=== PATIENT | female | born 1975 ===

== ENCOUNTER 2017-03-05 21:13 | Observation (INO) | payer MEDICAID ==
[2017-03-05 21:23] VITALS: RESP 16
--- NOTE | 2017-03-05 21:50 | ED PDOC ---
HPI: Abdomen <Shawn Darby A - Last Filed: 03/05/17 23:45> Chief Complaint (Provider): Abdominal Pain History Per: Patient History/Exam Limitations: no limitations Onset/Duration Of Symptoms: Days (x1 ) Current Symptoms Are (Timing): Still Present <Abena Fontanez - Last Filed: 03/05/17 23:53> Time Seen by Provider: 03/05/17 21:31 Chief Complaint (Nursing): Abdominal Pain Additional Complaint(s): Maude Little is a 41 year old female who presents to the emergency department with a complaint of pelvic pain associated with vaginal bleeding and headache since this morning. Denied fever, chills, urinary complaints, or taking medication for symptom relief. Of note, patient is currently 7 weeks with history of normal, vaginal births. G3,P2. Patients bleeding was resolved upon arrival to the ED. PMD: Lasha Watson MD (Abena Fontanez Y) Past Medical History <Shawn Darby A - Last Filed: 03/05/17 23:45> Reviewed: Historical Data, Nursing Documentation, Vital Signs - Medical History PMH: No Chronic Diseases Denies: Diabetes - Surgical History Surgical History: No Surg Hx - Family History Family History: States: Unknown Family Hx <Abena Fontanez Y - Last Filed: 03/05/17 23:53> Vital Signs: Last Vital Signs Temp 98.1 F 03/05/17 21:19 Pulse 62 03/05/17 21:19 Resp 16 03/05/17 21:19 BP 114/54 L 03/05/17 21:19 Pulse Ox 100 03/05/17 21:57 - Home Medications Home Medications: Ambulatory Orders Medication Instructions Recorded Multivit/Folic Acid/I 1 tab PO DAILY 03/05/17 [ Plus] - Allergies Allergies/Adverse Reactions: Allergies Allergy/AdvReac Type Severity Reaction Status Date / Time No Known Allergies Allergy Verified 01/21/16 23:27 Review of Systems ROS Statement: Except As Marked, All Systems Reviewed And Found Negative Constitutional: Negative for: Fever, Chills Genitourinary Female: Positive for: Vaginal Bleeding, Pelvic Pain. Negative for : Dysuria, Hematuria Neurological: Positive for: Headache <Abena Fontanez Y - Last Filed: 03/05/17 23:53> Physical Exam - Reviewed Nursing Documentation Reviewed: Yes Vital Signs Reviewed: Yes - Physical Exam Appears: Positive for: Well, Non-toxic, No Acute Distress Head Exam: Positive for: ATRAUMATIC, NORMAL INSPECTION, NORMOCEPHALIC Skin: Positive for: Normal Color Cardiovascular/Chest: Positive for: Regular Rate, Rhythm Respiratory: Positive for: Normal Breath Sounds. Negative for: Crackles, Rales , Rhonchi, Wheezing Gastrointestinal/Abdominal: Positive for: Normal Exam, Bowel Sounds, Soft, Tenderness (pelvis) Extremity: Positive for: Normal ROM. Negative for: Tenderness, Pedal Edema Neurologic/Psych: Positive for: Alert, top installer II-XII, Oriented <Abena Fontanez Y - Last Filed: 03/05/17 23:53> - Laboratory Results Result Diagrams: 03/05/17 21:53 03/05/17 21:53 <Shawn Darby - Last Filed: 03/05/17 23:45> - Laboratory Results Result Diagrams: 03/05/17 21:53 03/05/17 21:53 - ECG O2 Sat by Pulse Oximetry: 100 (RA) Pulse Ox Interpretation: Normal <Abena Fontanez Y - Last Filed: 03/05/17 23:53> Medical Decision Making <Shawn Darby A - Last Filed: 03/05/17 23:45> <Abena Fontanez Y - Last Filed: 03/05/17 23:53> Medical Decision Making: Initial Impression: Vaginal bleeding; Initial Plan: * Type and screen * Beta-HCG * Labs * Urine C&S * Admit to hospital * Urinalysis * US OB preg & transvag Scribe Attestation: Documented by Seda Hernandez, acting as a scribe for Abena Fontanez MD. Provider Scribe Attestation: All medical record entries made by the Scribe were at my direction and personally dictated by me. I have reviewed the chart and agree that the record accurately reflects my personal performance of the history, physical exam, medical decision making, and the department course for this patient. I have also personally directed, reviewed, and agree with the discharge instructions and disposition. 2328-Ultrasound Report Addendum created by Yahir Martinez MD on 03/05/2017 11:28 PM Eastern Time ([place] & [place]) THIS REPORT CONTAINS FINDINGS THAT MAY BE CRITICAL TO PATIENT CARE. The findings were verbally communicated via telephone conference with Abena Hutchins at 11:28 PM EDT on 03/05/2017. The findings were acknowledged and understood. Initial Report created on 03/05/2017 11:26 PM Eastern Time ([place] & [place]) EXAM: US , Transvaginal CLINICAL HISTORY: 41 years old, female; Pain; complicated by abdominal or pelvic pain; Lower; First trimester; Gestational age or lmp: 12/20/2015; ; Additional info: pain TECHNIQUE: Real-time transvaginal obstetrical ultrasound of the maternal pelvis and a first trimester with image documentation. Transvaginal imaging was used for better evaluation of the fetus and adnexa. COMPARISON: No relevant prior studies available. FINDINGS: Gestation: Gestational sac. No yolk sac. pole. [place]-rump length of 1.6 cm , correlating with gestational age of 8 weeks 0 days. No heartbeat detected. Uterus/cervix: 0.6 x 0.3 x 0.5 cm collection along gestational sac, possibly subchorionic hemorrhage. No cervical dilatation or effacement. Ovaries: RIGHT ovary: Normal. LEFT ovary: 1.1 x 1.3 x 1.1 cm anechoic lesion. No adnexal masses. Free fluid: No significant free fluid. IMPRESSION: 1. Findings compatible with demise. 2. LEFT ovarian cyst. 3. Incidental/non-acute findings are described above 2330 Re-Evaluation: Diagnosis: Demise. Patients cervix is closed, hemoglobin is stable, urine presents no infection, and the patient is RH positive. The patient has been given bleeding precautions and instructed to follow-up with OBGYN in two days. PT has also been made aware of ultrasound report. 2330: Discharge Discussed results and plan with patient who expresses understanding. Counseling was provided regarding the diagnosis and prognosis. All questions answered and there is agreement with the plan to discharge home with instructions. Patient stable for discharge. Return if symptoms persist or worsen. Scribe Attestation: Documented by Brianne Ortiz, acting as a scribe for Abena Fontanez MD. Scribe Attestation: All medical record entries made by the Scribe were at my direction and personally dictated by me. I have reviewed the chart and agree that the record accurately reflects my personal performance of the history, physical exam, medical decision making, and the department course for this patient. I have also personally directed, reviewed, and agree with the discharge instructions and disposition. (Abena Fontanez) Disposition <Shawn Darby - Last Filed: 03/05/17 23:45> - Patient ED Disposition Is Patient to be Admitted: No - Disposition Disposition: Routine/Home Disposition Time: 23:30 <Abena Fontanez - Last Filed: 03/05/17 23:53> - Clinical Impression Clinical Impression: demise - Disposition Condition: IMPROVED
[2017-03-05 22:12] LABS: BASO % 0.5 % (0.0-2.0); EOS # 0.2 K/uL (0.0-0.7); EOS % 2.3 % (0.0-4.0); HEMOGLOBIN 11.6 g/dL (12.0-16.0); LYMPH # 2.5 K/uL (1.0-4.3); LYMPH % 30.5 % (20.0-40.0); MEAN CELL VOLUME 81.6 fl (81.0-99.0); MEAN CORPUSCULAR HEMOGLOBIN 26.4 pg (27.0-31.0); MEAN CORPUSCULAR HGB CONC 32.4 g/dL (33.0-37.0); MEAN PLATELET VOLUME 8.1 fl (7.2-11.7); MONO # 0.4 K/uL (0.0-0.8); MONO % 4.9 % (0.0-10.0); NEUT % 61.8 % (50.0-75.0); RBC 4.39 Mil/uL (3.80-5.20); WHITE BLOOD COUNT 8.1 K/uL (4.8-10.8)
[2017-03-05 22:31] LABS: ALB/GLOB RATIO 1.5 (1.0-2.1); ALBUMIN 4.3 g/dL (3.5-5.0); ALT/SGPT 30 U/L (9-52); AST/SGOT 26 U/L (14-36); BLOOD UREA NITROGEN 9 mg/dl (7-17); CALCIUM 9.4 mg/dL (8.4-10.2); GFR AFRICAN-AMERICAN > 60; GFR NON-AFRICAN AMERICAN > 60
[2017-03-05 22:56] LABS: SQUAMOUS EPITHIAL < 1 /hpf (0-5); URINE BILIRUBIN NEGATIVE (NEGATIVE); URINE BLOOD SMALL (NEGATIVE); URINE CLARITY CLEAR (Clear); URINE COLOR YELLOW (YELLOW); URINE GLUCOSE (UA) NEG (Normal); URINE LEUKOCYTE ESTERASE NEG Leu/uL (Negative); URINE NITRATE NEGATIVE (NEGATIVE); URINE PROTEIN NEGATIVE (NEGATIVE); URINE UROBILINOGEN 0.2-1.0 mg/dL (0.2-1.0)
--- NOTE | 2017-03-05 23:26 | US ---
EXAM: US , Transvaginal CLINICAL HISTORY: 41 years old, female; Pain; complicated by abdominal or pelvic pain; Lower; First trimester; Gestational age or lmp: 12/20/2015; ; Additional info: pain TECHNIQUE: Real-time transvaginal obstetrical ultrasound of the maternal pelvis and a first trimester with image documentation. Transvaginal imaging was used for better evaluation of the fetus and adnexa. COMPARISON: No relevant prior studies available. FINDINGS: Gestation: Gestational sac. No yolk sac. pole. [place]-rump length of 1.6 cm, correlating with gestational age of 8 weeks 0 days. No heartbeat detected. Uterus/cervix: 0.6 x 0.3 x 0.5 cm collection along gestational sac, possibly subchorionic hemorrhage. No cervical dilatation or effacement. Ovaries: RIGHT ovary: Normal. LEFT ovary: 1.1 x 1.3 x 1.1 cm anechoic lesion. No adnexal masses. Free fluid: No significant free fluid. IMPRESSION: 1. Findings compatible with demise. 2. LEFT ovarian cyst. 3. Incidental/non-acute findings are described above.
[2017-03-05 23:58] VITALS: BP 121/66; PULSE 76; TEMP 98.6; O2SAT 98
== END 2017-03-05 23:30 | disposition home or self-care (01) ==
LOC: H.ER 21:13 → H.EROBSV 21:47
PROVIDERS: ADMIT Emergency Medicine; ATTEND Emergency Medicine
DX: O02.1 Missed abortion (principal); Z3A.01 Less than 8 weeks gestation of pregnancy

== ENCOUNTER 2017-03-07 16:27 | Emergency (ER) | payer MEDICAID ==
[2017-03-07 16:43] VITALS: RESP 16; TEMP 98.8; O2SAT 98
[2017-03-07] MEDS ORDERED: Lactated Ringer's 1,000 ML IV STA ×2 (16:58→20:47)
--- NOTE | 2017-03-07 17:39 | ED PDOC ---
HPI: Female Pain Time Seen by Provider: 03/07/17 16:54 Chief Complaint (Nursing): Female Genitourinary Chief Complaint (Provider): vaginal bleeding History Per: Patient History/Exam Limitations: no limitations Onset/Duration Of Symptoms: Days (4), Persistent, Worse Since (9am) Quality Of Discomfort: Cramping Associated Symptoms: denies: Fever, Chills, Nausea, Vomiting, Diarrhea, Urinary Symptoms Additional Complaint(s): 10wks with recent visits to ER for vaginal bleeding and pelvic pain. Had been told that she is having a miscarriage. Today at 9am bleeding suddenly more heavy with clots, and associated with more severe pain No lightheadedness. No fainting. Used 4 sanitary pads so far. Has not f/u with OB yet. OB Jeremías Santos Past Medical History Reviewed: Historical Data, Nursing Documentation, Vital Signs Vital Signs: Last Vital Signs Temp 98.8 F 03/07/17 16:39 Pulse 75 03/07/17 16:39 Resp 16 03/07/17 16:39 BP 123/57 L 03/07/17 16:39 Pulse Ox 98 03/07/17 16:39 - Medical History PMH: No Chronic Diseases - Surgical History Surgical History: No Surg Hx - Family History Family History: States: Unknown Family Hx - Social History Current smoker - smoking cessation education provided: No - Home Medications Home Medications: Ambulatory Orders Medication Instructions Recorded Multivit/Folic Acid/I 1 tab PO DAILY 03/05/17 [ Plus] Ibuprofen [Motrin Tab] 600 mg PO Q8 PRN #60 tab 03/07/17 - Allergies Allergies/Adverse Reactions: Allergies Allergy/AdvReac Type Severity Reaction Status Date / Time No Known Allergies Allergy Verified 01/21/16 23:27 Review of Systems ROS Statement: Except As Marked, All Systems Reviewed And Found Negative (and as per HPI) Gastrointestinal: Positive for: Abdominal Pain. Negative for: Nausea, Vomiting , Diarrhea Genitourinary Female: Positive for: Vaginal Bleeding, Pelvic Pain Physical Exam - Reviewed Nursing Documentation Reviewed: Yes Vital Signs Reviewed: Yes - Physical Exam Appears: Positive for: Non-toxic, In Acute Distress Head Exam: Positive for: ATRAUMATIC, NORMOCEPHALIC Skin: Positive for: Warm, Dry. Negative for: Pallor Eye Exam: Positive for: EOMI, PERRL ENT: Positive for: Normal ENT Inspection Neck: Positive for: Painless ROM, Supple Cardiovascular/Chest: Positive for: Regular Rate, Rhythm. Negative for: Murmur Respiratory: Negative for: Accessory Muscle Use, Respiratory Distress Gastrointestinal/Abdominal: Positive for: Bowel Sounds, Soft, Tenderness. Negative for: Mass, Distended, Guarding Pelvic Exam: Positive for: Active Bleeding, Blood (heavy with clots cervic open) , Tender Uterus Back: Positive for: Normal Inspection Extremity: Negative for: Pedal Edema, Deformity Neurologic/Psych: Positive for: Alert. Negative for: Motor/Sensory Deficits - Laboratory Results Result Diagrams: 03/07/17 17:44 03/07/17 17:44 - ECG O2 Sat by Pulse Oximetry: 98 - Progress ED Course And Treament: EXAM: US , Transvaginal CLINICAL HISTORY: 41 years old female; Signs and symptoms; Lmp or gestational age (in weeks): Lmp. .; Other: Heavy vag bleed and ; Patient HX: Exam 2 days ago uploaded to [employer]; Additional info: Heavy vaginal bleed R/O missed ab TECHNIQUE: Real-time transvaginal obstetrical ultrasound of the maternal pelvis and a first trimester with image documentation. Transvaginal imaging was used for better evaluation of the endometrial contents and adnexa. COMPARISON: OB ultrasound dated 03/05/2017. FINDINGS: Uterus: Uterus is anteverted. It is mildly enlarged and measures approximately 10.8 x 6.4 x 6 cm. The endometrium is thickened and heterogeneous and measures 21.8 mm. No significant vascularity is seen by color flow ultrasound. Findings most likely represent blood clot. No findings to suggest retained products of conception. Cervix: Unremarkable Gestation: The previously noted intrauterine gestational sac and embryo are no longer seen consistent with interval spontaneous . Free fluid: There is no free fluid in the cul-de-sac. Ovaries/adnexa: The ovaries were not visualized, obscured by bowel gas. IMPRESSION: Interval spontaneous with evacuation of the gestational sac and embryo. Thickened endometrium without evidence of increased vascularity. Findings consistent with blood clot. Ovaries not visualized. Thank you for allowing us to participate in the care of your patient. Dictated and Authenticated by: Jaiden Muñoz MD 03/07/2017 8:11 PM Eastern Time ([place] & [place]) Disposition - Clinical Impression Clinical Impression: Miscarriage Counseled Patient/Family Regarding: Studies Performed, Diagnosis, Need For Followup, Rx Given - Disposition [facility] - 03[facility]09[facility]17 Disposition: Routine/Home Disposition Time: 21:00 Condition: STABLE Prescriptions: Ibuprofen [Motrin Tab] 600 mg PO Q8 PRN #60 tab PRN Reason: Pain, Moderate (4-7) Instructions: Spontaneous Miscarriage (ED) Forms: [facility] ED School/Work Excuse Print Language: TAMAZIGHT
[2017-03-07 17:49] LABS: BASO % 0.3 % (0.0-2.0); EOS # 0.2 K/uL (0.0-0.7); EOS % 2.4 % (0.0-4.0); HEMOGLOBIN 12.1 g/dL (12.0-16.0); LYMPH # 2.1 K/uL (1.0-4.3); MEAN CELL VOLUME 82.2 fl (81.0-99.0); MEAN CORPUSCULAR HEMOGLOBIN 26.9 pg (27.0-31.0); MEAN CORPUSCULAR HGB CONC 32.7 g/dL (33.0-37.0); MEAN PLATELET VOLUME 8.2 fl (7.2-11.7); MONO # 0.7 K/uL (0.0-0.8); MONO % 6.7 % (0.0-10.0); NEUT # 6.8 K/uL (1.8-7.0); NEUT % 69.6 % (50.0-75.0); RBC 4.52 Mil/uL (3.80-5.20); RED CELL DISTRIBUTION WIDTH 19.1 % (11.5-14.5); WHITE BLOOD COUNT 9.8 K/uL (4.8-10.8)
[2017-03-07 17:59] LABS: ALB/GLOB RATIO 1.6 (1.0-2.1); ALBUMIN 4.5 g/dL (3.5-5.0); ALT/SGPT 33 U/L (9-52); AST/SGOT 15 U/L (14-36); BLOOD UREA NITROGEN 12 mg/dl (7-17); CALCIUM 9.3 mg/dL (8.4-10.2); GFR AFRICAN-AMERICAN > 60; GFR NON-AFRICAN AMERICAN > 60
[2017-03-07 18:14] LABS: INR 1.1 (0.9-1.2); PARTIAL THROMBOPLASTIN TIME 30.4 Seconds (25.6-37.1); PROTHROMBIN TIME 12.4 Seconds (9.8-13.1)
[2017-03-07 22:02] VITALS: BP 121/6; PULSE 87
--- NOTE | 2017-03-08 10:35 | US ---
PROCEDURE: HISTORY: heavy vaginal bleed r/o missed ab COMPARISON: 03/05/2017 TECHNIQUE: FINDINGS: Diffuse thickening of the endometrium measuring 22 millimeters without vascularity suggestive of hemorrhagic thrombus. No definite evidence of products of conception. No evidence of intrauterine gestational sac compatible with spontaneous . The ovaries are not visualized. There is no free fluid the pelvis. IMPRESSION: As above.
== END 2017-03-07 22:09 | disposition home or self-care (01) ==
LOC: H.ER 16:27
DX: O03.9 Complete or unspecified spontaneous abortion without complication (principal)

== ENCOUNTER 2017-10-05 14:36 | Inpatient (IN) | payer MEDICAID, OTHER ==
[2017-10-05 14:45] VITALS: BMI 34.9
--- NOTE | 2017-10-05 15:18 | ED PDOC ---
HPI: Abdomen Chief Complaint (Provider): Abdominal pain History Per: Patient History/Exam Limitations: no limitations Onset/Duration Of Symptoms: Days (7), Intermittent Episodes Current Symptoms Are (Timing): Still Present Pain Scale Rating Of: 9 Location Of Pain/Discomfort: Diffuse Quality Of Discomfort: Cramping Associated Symptoms: Fever, Nausea, Diarrhea. denies: Vomiting Exacerbating Factors: None Alleviating Factors: None <Bere Persaud - Last Filed: 10/05/17 19:00> <Shawn Darby - Last Filed: 10/06/17 13:25> Time Seen by Provider: 10/05/17 14:48 Chief Complaint (Nursing): Fever Additional Complaint(s): 42 yo ,f, no significant PMHx presents to ED c/o diffuse generalized abdominal pain started 7 days ago, cramping, 9/10 intensity, not radiated, associated with non-bloddy greenish large diarrhea 7-8 episodes/day for the last 3 days and since yesterday flu like symptoms: occipital headache, nausea, myalgia, fever 101.2, sore throat, dry cough. She denies vomiting, dysuria, hematuria, chest pain, palpitation, dizziness. Pt took motrin this morning w/o relief of symptoms. Pt had 5 drinks on thursday, denies drugs. LMP: 10/03/17 . (Bere Persaud) Supervising Attending Note - Supervising Attending Note The Documented history was done by the: Physician Online Marketing Coordinator, Attending Physician The documented physical exam was done by the: Physician Online Marketing Coordinator, Attending Physician The documented procedures were done by the: Physician Online Marketing Coordinator, Attending Physician - Attestation: I have personally seen and examined this patient.: Yes I have fully participated in the care of the patient.: Yes I have reviewed all pertinent clinical information: Yes <Shawn Darby - Last Filed: 10/06/17 13:25> Past Medical History - Medical History PMH: Denies: Diabetes - Family History Family History: States: Unknown Family Hx <Bere Persaud - Last Filed: 10/05/17 19:00> Reviewed: Historical Data, Nursing Documentation, Vital Signs - Medical History PMH: No Chronic Diseases - Surgical History Surgical History: No Surg Hx <Shawn Darby - Last Filed: 10/06/17 13:25> Vital Signs: Last Vital Signs Temp 98.5 F 10/06/17 12:45 Pulse 80 10/06/17 12:45 Resp 16 10/06/17 12:45 BP 106/60 10/06/17 12:45 Pulse Ox 100 10/06/17 12:45 - Home Medications Home Medications: Ambulatory Orders Medication Instructions Recorded Ibuprofen [Motrin Tab] 400 mg PO PRN PRN 10/06/17 - Allergies Allergies/Adverse Reactions: Allergies Allergy/AdvReac Type Severity Reaction Status Date / Time No Known Allergies Allergy Verified 01/21/16 23:27 Review of Systems Constitutional: Positive for: Fever Respiratory: Positive for: Cough Gastrointestinal: Positive for: Nausea, Abdominal Pain, Diarrhea. Negative for : Vomiting Genitourinary Female: Negative for: Dysuria, Hematuria Neurological: Negative for: Weakness <Bere Persaud - Last Filed: 10/05/17 19:00> ROS Statement: Except As Marked, All Systems Reviewed And Found Negative <Shanw Darby A - Last Filed: 10/06/17 13:25> Physical Exam - Physical Exam Appears: Positive for: In Acute Distress (mild distress from pain ) Head Exam: Positive for: ATRAUMATIC, NORMOCEPHALIC Skin: Positive for: Normal Color Eye Exam: Positive for: Normal appearance ENT: Positive for: Normal ENT Inspection Neck: Positive for: Normal Cardiovascular/Chest: Positive for: Regular Rate, Rhythm. Negative for: Edema, Murmur Respiratory: Positive for: Normal Breath Sounds. Negative for: Crackles, Rales , Rhonchi Gastrointestinal/Abdominal: Positive for: Bowel Sounds (normal ), Soft, Tenderness (epigastric TD and LLQ). Negative for: Distended, Guarding, Rebound Back: Positive for: Normal Inspection. Negative for: L CVA Tenderness, R CVA Tenderness <Bere Persaud - Last Filed: 10/05/17 19:00> - Reviewed Nursing Documentation Reviewed: Yes Vital Signs Reviewed: Yes - Physical Exam Appears: Positive for: Uncomfortable Neurologic/Psych: Positive for: Alert, Oriented <Shawn Darby A - Last Filed: 10/06/17 13:25> - Laboratory Results Result Diagrams: 10/05/17 16:01 10/05/17 16:01 - ECG O2 Sat by Pulse Oximetry: 98 <Bere Persaud - Last Filed: 10/05/17 19:00> - Laboratory Results Result Diagrams: 10/06/17 05:55 10/06/17 05:55 <Shawn Darby - Last Filed: 10/06/17 13:25> Medical Decision Makin:15 pm Patient evaluated for abdominal pain x 7 days, diarrheas the last 3 days and flu symptoms started yesterday Initial impression Abdominal pain Influenza URI Deferential -Acute viral gastroenteritis -Acute pancreatitis -Acute Diverticulitis Plan: Labs CBC, CMP, UA, Lipase, Influenza test, Urine preg Imaging CT Abd w IV contrast Meds: IV fluids, Zofran, Pepcid, Morphine 4mg, Tylenol 650 mg 18:11 pm Patient evaluated, reports abdominal pain is getting better with morphine, but still present 10/24. CBC: WBC normal but neutrohilia 88.6, Bands 10, toxic granulation. UA hematuria secondary to menses Pending CT Abd results. 18:55 CT Abd: showed pancolitis. Trace cholelithiasis. (Bere Persaud) Disposition - Disposition Disposition Time: 19:00 <Bere Persaud - Last Filed: 10/05/17 19:00> - Patient ED Disposition Is Patient to be Admitted: Transfer of Care Counseled Patient/Family Regarding: Studies Performed, Diagnosis - Disposition Disposition Time: 17:00 Patient Signed Over To: Garret Carpio <Shawn Darby - Last Filed: 10/06/17 13:25> - Clinical Impression Clinical Impression: Pancolitis - Disposition Condition: STABLE
[2017-10-05] MEDS ORDERED: Morphine 4 MG/ML VIAL IVP ONE (15:25)
[2017-10-05] MEDS ORDERED: Lactated Ringer's 1,000 ML IV SCH (15:30)
[2017-10-05] MEDS ORDERED: Lactated Ringer's 1,000 ML IV ONE (15:45)
[2017-10-05 16:17] LABS: BASO % 0.1 % (0.0-2.0); LYMPH # 0.8 K/uL (1.0-4.3); LYMPH % 7.3 % (20.0-40.0); MEAN CELL VOLUME 77.2 fl (81.0-99.0); MEAN CORPUSCULAR HGB CONC 32.3 g/dL (33.0-37.0); MEAN PLATELET VOLUME 8.3 fl (7.2-11.7); MONO # 0.4 K/uL (0.0-0.8); NEUT # 9.1 K/uL (1.8-7.0); NEUT % 88.6 % (50.0-75.0); PLATELET COUNT 231 K/uL (130-400); RBC 4.42 Mil/uL (3.80-5.20); RED CELL DISTRIBUTION WIDTH 16.3 % (11.5-14.5); WHITE BLOOD COUNT 10.3 K/uL (4.8-10.8)
[2017-10-05 16:27] LABS: ALB/GLOB RATIO 1.2 (1.0-2.1); ALBUMIN 4.2 g/dL (3.5-5.0); ALT/SGPT 32 U/L (9-52); AST/SGOT 21 U/L (14-36); BLOOD UREA NITROGEN 17 mg/dl (7-17); GFR AFRICAN-AMERICAN > 60; GFR NON-AFRICAN AMERICAN > 60; LIPASE 37 U/L (23-300)
[2017-10-05] MEDS ORDERED: Morphine 4 MG/ML VIAL ONE ×2 (16:31→21:16)
[2017-10-05 16:43] LABS: GRANULAR CAST 2 /lpf (0-1); SQUAMOUS EPITHIAL 1 /hpf (0-5); URINE BACTERIA RARE (<OCC); URINE BILIRUBIN NEGATIVE (NEGATIVE); URINE BLOOD MODERATE (NEGATIVE); URINE CLARITY CLOUDY (Clear); URINE COLOR YELLOW (YELLOW); URINE GLUCOSE (UA) NEG (Normal); URINE LEUKOCYTE ESTERASE NEG Leu/uL (Negative); URINE NITRATE NEGATIVE (NEGATIVE); URINE PROTEIN 100 mg/dL (NEGATIVE); URINE UROBILINOGEN 0.2-1.0 mg/dL (0.2-1.0)
[2017-10-05] MEDS ORDERED: Sodium Chloride 0.9% 50 ML IV ONE (17:01)
[2017-10-05] MEDS ORDERED: Iohexol 300 100 ML IJ ONE (17:01)
[2017-10-05 17:27] LABS: BANDS 10 % (0-2); EOSINOPHIL 1 % (0-7); LYMPHOCYTE 14 % (20-50); MONOCYTE 3 % (0-10); NEUTROPHIL 72 % (42-75); TOTAL CELLS COUNTED 100
[2017-10-05 17:28] LABS: ANISOCYTOSIS SLIGHT; POIKILOCYTOSIS SLIGHT
[2017-10-05 17:29] LABS: HYPOCHROMIC SLIGHT; OVALOCYTES SLIGHT; TARGET CELLS SLIGHT
[2017-10-05 17:30] LABS: POLYCHROMIC SLIGHT; STOMATOCYTES SLIGHT; TEARDROP CELLS SLIGHT
[2017-10-05 17:32] LABS: SPHEROCYTES SLIGHT; TOXIC GRANULATION PRESENT
[2017-10-05 17:33] LABS: PLATELET ESTIMATE NORMAL (NORMAL)
[2017-10-05] MEDS ORDERED: Sodium Chloride 0.9% 1,000 ML IV STA (17:53)
[2017-10-05] MEDS ORDERED: Piperacillin/Tazobact 3.375 GM in Sodium Chloride 0.9% 100 ML IVPB STA (17:54)
[2017-10-05] MEDS ORDERED: Piperacillin/Tazobact 3.375 gm Inj IVPB ONE (18:12)
[2017-10-05 18:36] LABS: VENOUS BLOOD GAS BASE EXCESS -2.3 mmol/L (0.0-2.0); VENOUS BLOOD GAS PCO2 32 mmHg (40-60); VENOUS BLOOD GAS PO2 65 mm/Hg (30-55); VENOUS BLOOD PH 7.43 (7.32-7.43)
--- NOTE | 2017-10-05 18:52 | CT ---
PROCEDURE: CT Abdomen and Pelvis with contrast HISTORY: Epigastric,LLQ abd pain COMPARISON: Abdomen pelvis CT with contrast 09/25/2014. TECHNIQUE: Following the intravenous administration of iodinated contrast material, a CT examination of the abdomen and pelvis performed from the domes of the diaphragms to the symphysis pubis with reformatted datasets provided not only axial but also sagittal and coronal planes. Oral contrast was not administered as per referring physician request. Contrast dose: Omnipaque 300, 95 cc Radiation dose: Total exam DLP = 1034.78 mGy-cm. This CT exam was performed using one or more of the following dose reduction techniques: Automated exposure control, adjustment of the mA and/or kV according to patient size, and/or use of iterative reconstruction technique. FINDINGS: LOWER THORAX: Heart appears prominent. No pleural or pericardial effusion identified. LIVER: Diffuse fatty infiltration of the liver is appreciate without discrete mass. GALLBLADDER AND BILE DUCTS: Trace radiodense cholelithiasis is now identified in the gallbladder lumen versus minimal anterior gallbladder wall calcification. Moderate gallbladder distention is appreciate without pericholecystic fluid collection or mural thickening. PANCREAS: Unremarkable. No gross lesion or ductal dilatation. SPLEEN: Unremarkable. ADRENALS: Right adrenal calcifications are again appreciated. Left adrenal gland remains normal appearing. KIDNEYS AND URETERS: Unremarkable. No hydronephrosis. No solid mass. VASCULATURE: Unremarkable. No aortic aneurysm. BOWEL: Lack of oral contrast administration limits evaluation of the bowel. The stomach is decompressed with limited residual fluid in the lumen. No bowel obstruction or definite mesenteric edema is appreciated including the pericolic spaces. However, fluid is seen throughout the large bowel somewhat more so on the right than left colon segments and mural thickening is suspected throughout the colon in a pattern that likely reflects aguilar colitis. Clinically correlate further. APPENDIX: Normal appendix. PERITONEUM: Unremarkable. No free fluid. No free air. LYMPH NODES: Unremarkable. No enlarged lymph nodes. BLADDER: Urinary bladder is only mildly distended with limited evaluation of the wall resulting. REPRODUCTIVE: Unremarkable. BONES: No acute fracture. OTHER FINDINGS: None. IMPRESSION: Pancolitis were near pancolitis is suspected involving the colon. No abscess, free intraperitoneal gas or ascites. No definite perinephric fluid collection. Retained fluid is seen at the right greater than left hemicolon with suspected mural thickening throughout the large bowel as discussed above. The lack of oral contrast administration limits evaluation of the bowel. Further clinical correlation is advised. Hepatic steatosis. Trace cholelithiasis. Stable right adrenal calcifications. No obvious right adrenal mass.
--- NOTE | 2017-10-05 19:43 | CP.PCM.HP ---
History of Present Illness - History of Present Illness History of Present Illness: This is a 42 year old female with no significant past medical history who presents to the ED with the complaint of fever, chills, generalized abdominal pain, and weakness getting progressively worse. The patient states that the pain is crampy, severe 9/10 intensity, generalized, with watery green nonbloody diarrhea x 3 days. LMP 10/03/2017 In the ED, the patient was found to be febrile with a temp of 101.3, tachycardia of 114, appearing acutely ill. Labwork shows WBC of 10.3, Hg 11.0, plt count of 231, Neutrophilia 88.6%, neutrophil count of 9.1, Band neutrophils of 10%. CT scan abdomen and pelvis reveals diffuse mural thickening and fluid, consistent with pancolitis. Given the patient's vitals she was also diagnosed with sepsis. Patient to be admitted to telemetry for further workup. Present on Admission - Present on Admission Any Indicators Present on Admission: No History of DVT/PE: No History of Uncontrolled Diabetes: No Review of Systems - Review of Systems Review of Systems: A 12 point review of systems was conducted and found to be negative other than what was documented in the HPI. Past Patient History - Infectious Disease Hx of Infectious Diseases: None - Past Social History Smoking Status: Light Smoker < 10 Cigarettes Daily - PSYCHIATRIC Hx Substance Use: No - SURGICAL HISTORY Hx Surgeries: No - ANESTHESIA Hx Anesthesia: No Meds Allergies/Adverse Reactions: Allergies Allergy/AdvReac Type Severity Reaction Status Date / Time No Known Allergies Allergy Verified 01/21/16 23:27 Physical Exam - Additional Findings Additional findings: Physical exam: Constitutional- cooperative, awake, alert Head- NCAT, PERRL Eye- PERRL, EOMI ENT- normal exam, MMM. Neck- normal inspection, supple, no JVD Respiratory- CTAB, no wheezes rales rhonchi Cardiovascular- RRR, +S1, +S2 no MRG GI/Abdominal- normal bowel sounds, soft, + Tender to palpation diffusely, protuberant, nondistended, no mass, no hsm Skin- warm, dry Extremities Exam- normal capillary refill, normal inspection Neurological Exam- alert, awake, oriented Psych- normal mood, normal affect Results - Vital Signs Recent Vital Signs: Last Vital Signs Temp 99.5 F 02/19/18 19:11 Pulse 114 H 10/05/17 14:40 Resp 18 10/05/17 14:40 BP 138/85 10/05/17 14:40 Pulse Ox 98 10/05/17 19:00 - Labs Result Diagrams: 10/05/17 16:01 10/05/17 16:01 Labs: Laboratory Results - last 24 hr 10/05/17 10/05/17 10/05/17 16:01 16:01 16:01 WBC 10.3 RBC 4.42 Hgb 11.0 L Hct 34.2 MCV 77.2 L D MCH 25.0 L MCHC 32.3 L RDW 16.3 H Plt Count 231 MPV 8.3 Neut % (Auto) 88.6 H Lymph % (Auto) 7.3 L [place] % (Auto) 4.0 Eos % (Auto) 0.0 Baso % (Auto) 0.1 Neut # (Auto) 9.1 H Lymph # (Auto) 0.8 L [place] # (Auto) 0.4 Eos # (Auto) 0.0 Baso # (Auto) 0.0 Neutrophils % (Manual) 72 Band Neutrophils % 10 H Lymphocytes % (Manual) 14 L Monocytes % (Manual) 3 Eosinophils % (Manual) 1 Toxic Granulation Present Platelet Estimate Normal Polychromasia Slight Hypochromasia (manual) Slight Poikilocytosis (manual Slight Anisocytosis (manual) Slight Spherocytes Slight Target Cells Slight Tear Drop Cells Slight Ovalocytes Slight Stomatocytes Slight pO2 VBG pH VBG pCO2 VBG HCO3 VBG Total CO2 VBG O2 Sat (Calc) VBG Base Excess VBG Potassium Glucose Lactate FiO2 Sodium 138 Potassium 4.0 Chloride 104 Carbon Dioxide 22 Anion Gap 16 BUN 17 Creatinine 0.9 Est GFR ( Amer) > 60 Est GFR (Non-Af Amer) > 60 Random Glucose 124 H Calcium 9.0 Total Bilirubin 0.6 AST 21 ALT 32 Alkaline Phosphatase 76 Total Protein 7.8 Albumin 4.2 Globulin 3.6 Albumin/Globulin Ratio 1.2 Lipase 37 Venous Blood Potassium Urine Color Urine Clarity Urine pH Ur Specific [place] Urine Protein Urine Glucose (UA) Urine Ketones Urine Blood Urine Nitrate Urine Bilirubin Urine Urobilinogen Ur Leukocyte Esterase Urine RBC (Auto) Urine Microscopic WBC Ur Squamous Epith Cells Urine Bacteria Hyaline Casts Granular Casts (Auto) Alcohol, Quantitative < 10 Influenza Typ A,B (EIA) Negative for flu a/b 10/05/17 10/05/17 16:05 18:20 WBC RBC Hgb Hct MCV MCH MCHC RDW Plt Count MPV Neut % (Auto) Lymph % (Auto) [place] % (Auto) Eos % (Auto) Baso % (Auto) Neut # (Auto) Lymph # (Auto) [place] # (Auto) Eos # (Auto) Baso # (Auto) Neutrophils % (Manual) Band Neutrophils % Lymphocytes % (Manual) Monocytes % (Manual) Eosinophils % (Manual) Toxic Granulation Platelet Estimate Polychromasia Hypochromasia (manual) Poikilocytosis (manual Anisocytosis (manual) Spherocytes Target Cells Tear Drop Cells Ovalocytes Stomatocytes pO2 65 H VBG pH 7.43 VBG pCO2 32 L VBG HCO3 23.0 VBG Total CO2 22.2 VBG O2 Sat (Calc) 95.2 H VBG Base Excess -2.3 L VBG Potassium 3.3 L Glucose 113 H Lactate 0.7 FiO2 21.0 Sodium 135.0 Potassium Chloride 107.0 Carbon Dioxide Anion Gap BUN Creatinine Est GFR ( Amer) Est GFR (Non-Af Amer) Random Glucose Calcium Total Bilirubin AST ALT Alkaline Phosphatase Total Protein Albumin Globulin Albumin/Globulin Ratio Lipase Venous Blood Potassium 3.3 L Urine Color Yellow Urine Clarity Cloudy Urine pH 6.0 Ur Specific [place] 1.028 Urine Protein 100 Urine Glucose (UA) Neg Urine Ketones Negative Urine Blood Moderate Urine Nitrate Negative Urine Bilirubin Negative Urine Urobilinogen 0.2-1.0 Ur Leukocyte Esterase Neg Urine RBC (Auto) 49 H Urine Microscopic WBC 4 Ur Squamous Epith Cells 1 Urine Bacteria Rare Hyaline Casts 3-5 H Granular Casts (Auto) 2 Alcohol, Quantitative Influenza Typ A,B (EIA) Assessment & Plan - Assessment and Plan (Free Text) Plan: ASSESSMENT/PLAN 1) Sepsis due to pancolitis - Admit to telemetry - Consultation with Dr. Sahu, GI - Regular diet - IV fluids - IV abx: Rocephin 1 gram IVPB q 12 hours and Flagyl 500 mg IVPB q 12 hours ( Vanc/Zosyn given in ED) - Morphine PRN for abdominal pain - Zofran PRN N/V - Blood culture, UCX, Stool CX, WBC stool, C. diff toxin A&B - Tylenol PRN for fever - Repeat labs in AM - F/u GI in AM 2) Obesity BMI 34.9 Chronic 3) DVT prophylaxis - Heparin SQ
[2017-10-05] MEDS: Sodium Chloride 0.9% 1,000 ML IV SCH (21:42)
[2017-10-06] MEDS: Sodium Chloride 0.9% 1,000 ML IV SCH ×2 (05:33→10:12)
[2017-10-06] MEDS ORDERED: Morphine 4 MG/ML VIAL ONE ×3 (05:46→14:24)
[2017-10-06 06:00] LABS: HEMOGLOBIN 9.1 g/dL (12.0-16.0); MEAN CORPUSCULAR HEMOGLOBIN 24.3 pg (27.0-31.0); MEAN CORPUSCULAR HGB CONC 31.5 g/dL (33.0-37.0); RBC 3.75 Mil/uL (3.80-5.20); RED CELL DISTRIBUTION WIDTH 16.6 % (11.5-14.5)
[2017-10-06 06:28] LABS: BLOOD UREA NITROGEN 10 mg/dl (7-17); GFR AFRICAN-AMERICAN > 60; GFR NON-AFRICAN AMERICAN > 60
[2017-10-06] MEDS ORDERED: metroNIDAZOLE 500mg/100ml NS 100 ML IVPB ONE (08:06)
[2017-10-06] MEDS: metroNIDAZOLE 500mg/100ml NS 100 ML IVPB SCH ×2 (08:10→22:23)
[2017-10-06] MEDS ORDERED: Potassium Chloride 20 mEq ER Tab PO ONE ×3 (08:57→10:09)
--- NOTE | 2017-10-06 09:06 | CP.PCM.CON ---
History of Present Illness - History of Present Illness History of Present Illness: 42 yo female coming to the ER after 3 days of abdominal pain and diarrhea. Symptoms started 3 days ago and having 7 green watery bowel movements daily. Review of Systems - Constitutional Constitutional: Fever - EENT Eyes: absent: Blurred Vision Ears: absent: Decreased Hearing Nose/Mouth/Throat: absent: Epistaxis - Cardiovascular Cardiovascular: absent: Chest Pain - Respiratory Respiratory: absent: Cough - Gastrointestinal Gastrointestinal: As Per HPI - Genitourinary Genitourinary: absent: Change in Urinary Stream Past Patient History - Infectious Disease Hx of Infectious Diseases: None - Past Social History Smoking Status: Light Smoker < 10 Cigarettes Daily - PSYCHIATRIC Hx Substance Use: No - SURGICAL HISTORY Hx Surgeries: No - ANESTHESIA Hx Anesthesia: No Meds Allergies/Adverse Reactions: Allergies Allergy/AdvReac Type Severity Reaction Status Date / Time No Known Allergies Allergy Verified 01/21/16 23:27 - Medications Medications: Current Medications Acetaminophen (Tylenol 325mg Tab) 650 mg PO Q6 PRN PRN Reason: Fever >100.4 F Last Admin: 10/05/17 21:40 Dose: 650 mg Heparin Sodium (Porcine) (Heparin) 5,000 units SC Q12 [facility] PRN Reason: Protocol Last Admin: 10/05/17 21:41 Dose: 5,000 units Metronidazole (Flagyl 500mg/100ml Ns) 100 mls @ 100 mls/hr IVPB Q12 [facility] PRN Reason: Protocol Last Admin: 10/06/17 08:10 Dose: 100 mls/hr Ceftriaxone Sodium 1 gm/ (Sodium Chloride) 100 mls @ 100 mls/hr IVPB DAILY [facility] PRN Reason: Protocol Sodium Chloride (Sodium Chloride 0.9%) 1,000 mls @ 150 mls/hr IV .Q6H40M [facility] Stop: 10/06/17 19:43 Last Admin: 10/06/17 05:33 Dose: 150 mls/hr Morphine Sulfate (Morphine) 2 mg IVP Q4 PRN PRN Reason: Pain, severe (8-10) Last Admin: 10/06/17 05:50 Dose: 2 mg Ondansetron HCl (Zofran Inj) 4 mg IVP Q6 PRN PRN Reason: Nausea/Vomiting Last Admin: 10/06/17 05:54 Dose: 4 mg Physical Exam - Constitutional Additional comments: Uncomfortable - Head Exam Head Exam: ATRAUMATIC - Eye Exam Eye Exam: Normal appearance - ENT Exam ENT Exam: Mucous Membranes Moist - Neck Exam Neck exam: Positive for: Normal Inspection - Respiratory Exam Respiratory Exam: Clear to Auscultation Bilateral - Cardiovascular Exam Cardiovascular Exam: REGULAR RHYTHM, +S1, +S2 - GI/Abdominal Exam GI & Abdominal Exam: Normal Bowel Sounds, Soft, Tenderness Additional comments: generalized moderate tenderness Results - Vital Signs Recent Vital Signs: Last Vital Signs Temp 98.9 F 10/06/17 07:49 Pulse 76 10/06/17 07:49 Resp 16 10/06/17 07:49 BP 110/62 10/06/17 07:49 Pulse Ox 99 10/06/17 07:49 - Labs Result Diagrams: 10/06/17 05:55 10/06/17 05:55 Labs: Laboratory Results - last 24 hr 10/05/17 10/05/17 10/05/17 16:01 16:01 16:01 WBC 10.3 RBC 4.42 Hgb 11.0 L Hct 34.2 MCV 77.2 L D MCH 25.0 L MCHC 32.3 L RDW 16.3 H Plt Count 231 MPV 8.3 Neut % (Auto) 88.6 H Lymph % (Auto) 7.3 L [place] % (Auto) 4.0 Eos % (Auto) 0.0 Baso % (Auto) 0.1 Neut # (Auto) 9.1 H Lymph # (Auto) 0.8 L [place] # (Auto) 0.4 Eos # (Auto) 0.0 Baso # (Auto) 0.0 Neutrophils % (Manual) 72 Band Neutrophils % 10 H Lymphocytes % (Manual) 14 L Monocytes % (Manual) 3 Eosinophils % (Manual) 1 Toxic Granulation Present Platelet Estimate Normal Polychromasia Slight Hypochromasia (manual) Slight Poikilocytosis (manual Slight Anisocytosis (manual) Slight Spherocytes Slight Target Cells Slight Tear Drop Cells Slight Ovalocytes Slight Stomatocytes Slight pO2 VBG pH VBG pCO2 VBG HCO3 VBG Total CO2 VBG O2 Sat (Calc) VBG Base Excess VBG Potassium Glucose Lactate FiO2 Sodium 138 Potassium 4.0 Chloride 104 Carbon Dioxide 22 Anion Gap 16 BUN 17 Creatinine 0.9 Est GFR ( Amer) > 60 Est GFR (Non-Af Amer) > 60 Random Glucose 124 H Calcium 9.0 Total Bilirubin 0.6 AST 21 ALT 32 Alkaline Phosphatase 76 Total Protein 7.8 Albumin 4.2 Globulin 3.6 Albumin/Globulin Ratio 1.2 Lipase 37 Venous Blood Potassium Urine Color Urine Clarity Urine pH Ur Specific [place] Urine Protein Urine Glucose (UA) Urine Ketones Urine Blood Urine Nitrate Urine Bilirubin Urine Urobilinogen Ur Leukocyte Esterase Urine RBC (Auto) Urine Microscopic WBC Ur Squamous Epith Cells Urine Bacteria Hyaline Casts Granular Casts (Auto) Alcohol, Quantitative < 10 Influenza Typ A,B (EIA) Negative for flu a/b 10/05/17 10/05/17 10/06/17 16:05 18:20 05:55 WBC RBC Hgb Hct MCV MCH MCHC RDW Plt Count MPV Neut % (Auto) Lymph % (Auto) [place] % (Auto) Eos % (Auto) Baso % (Auto) Neut # (Auto) Lymph # (Auto) [place] # (Auto) Eos # (Auto) Baso # (Auto) Neutrophils % (Manual) Band Neutrophils % Lymphocytes % (Manual) Monocytes % (Manual) Eosinophils % (Manual) Toxic Granulation Platelet Estimate Polychromasia Hypochromasia (manual) Poikilocytosis (manual Anisocytosis (manual) Spherocytes Target Cells Tear Drop Cells Ovalocytes Stomatocytes pO2 65 H VBG pH 7.43 VBG pCO2 32 L VBG HCO3 23.0 VBG Total CO2 22.2 VBG O2 Sat (Calc) 95.2 H VBG Base Excess -2.3 L VBG Potassium 3.3 L Glucose 113 H Lactate 0.7 FiO2 21.0 Sodium 135.0 138 Potassium 3.2 L Chloride 107.0 106 Carbon Dioxide 22 Anion Gap 13 BUN 10 Creatinine 0.7 Est GFR ( Amer) > 60 Est GFR (Non-Af Amer) > 60 Random Glucose 113 H Calcium 8.0 L Total Bilirubin AST ALT Alkaline Phosphatase Total Protein Albumin Globulin Albumin/Globulin Ratio Lipase Venous Blood Potassium 3.3 L Urine Color Yellow Urine Clarity Cloudy Urine pH 6.0 Ur Specific [place] 1.028 Urine Protein 100 Urine Glucose (UA) Neg Urine Ketones Negative Urine Blood Moderate Urine Nitrate Negative Urine Bilirubin Negative Urine Urobilinogen 0.2-1.0 Ur Leukocyte Esterase Neg Urine RBC (Auto) 49 H Urine Microscopic WBC 4 Ur Squamous Epith Cells 1 Urine Bacteria Rare Hyaline Casts 3-5 H Granular Casts (Auto) 2 Alcohol, Quantitative Influenza Typ A,B (EIA) 10/06/17 05:55 WBC 6.0 RBC 3.75 L Hgb 9.1 L Hct 28.9 L MCV 77.0 L MCH 24.3 L MCHC 31.5 L RDW 16.6 H Plt Count 179 MPV Neut % (Auto) Lymph % (Auto) [place] % (Auto) Eos % (Auto) Baso % (Auto) Neut # (Auto) Lymph # (Auto) [place] # (Auto) Eos # (Auto) Baso # (Auto) Neutrophils % (Manual) Band Neutrophils % Lymphocytes % (Manual) Monocytes % (Manual) Eosinophils % (Manual) Toxic Granulation Platelet Estimate Polychromasia Hypochromasia (manual) Poikilocytosis (manual Anisocytosis (manual) Spherocytes Target Cells Tear Drop Cells Ovalocytes Stomatocytes pO2 VBG pH VBG pCO2 VBG HCO3 VBG Total CO2 VBG O2 Sat (Calc) VBG Base Excess VBG Potassium Glucose Lactate FiO2 Sodium Potassium Chloride Carbon Dioxide Anion Gap BUN Creatinine Est GFR ( Amer) Est GFR (Non-Af Amer) Random Glucose Calcium Total Bilirubin AST ALT Alkaline Phosphatase Total Protein Albumin Globulin Albumin/Globulin Ratio Lipase Venous Blood Potassium Urine Color Urine Clarity Urine pH Ur Specific [place] Urine Protein Urine Glucose (UA) Urine Ketones Urine Blood Urine Nitrate Urine Bilirubin Urine Urobilinogen Ur Leukocyte Esterase Urine RBC (Auto) Urine Microscopic WBC Ur Squamous Epith Cells Urine Bacteria Hyaline Casts Granular Casts (Auto) Alcohol, Quantitative Influenza Typ A,B (EIA) - Imaging and Cardiology CT scan - abdomen Status: Report reviewed by me Assessment & Plan (1) Pancolitis Assessment and Plan: CT with evidence of pancolitis. Likely based on presentation to be infectious. C. diff being tested for but is less likely due to normal WBC. For now broad spectrum antibiotics, IV hydration, and adequate analgesia. Status: Acute
[2017-10-06] MEDS ORDERED: cefTRIAXone (Rocephin) 1 gm Inj ONE (09:35)
--- NOTE | 2017-10-06 14:51 | CP.PCM.PN ---
Subjective - Date & Time of Evaluation Date of Evaluation: 10/06/17 Time of Evaluation: 12:00 - Subjective Subjective: Patient seen and examined at bedside. Reports continued abdominal pain; however nausea and diarrhea improved. Yesterday evening after I saw her her BP dropped to low systolic 90's and again had fever of 101, however BP came up with fluids. Since she has been afebrile. No other complaints by patient or as per nursing staff. Objective - Vital Signs/Intake and Output Vital Signs (last 24 hours): Temp Pulse Resp BP Pulse Ox 98.5 F 80 16 106/60 100 10/06/17 12:45 10/06/17 12:45 10/06/17 12:45 10/06/17 12:45 10/06/17 12:45 - Medications Medications: Current Medications Acetaminophen (Tylenol 325mg Tab) 650 mg PO Q6 PRN PRN Reason: Fever >100.4 F Last Admin: 10/05/17 21:40 Dose: 650 mg Heparin Sodium (Porcine) (Heparin) 5,000 units SC Q12 [facility] PRN Reason: Protocol Last Admin: 10/06/17 09:40 Dose: 5,000 units Metronidazole (Flagyl 500mg/100ml Ns) 100 mls @ 100 mls/hr IVPB Q12 [facility] PRN Reason: Protocol Last Admin: 10/06/17 08:10 Dose: 100 mls/hr Ceftriaxone Sodium 1 gm/ (Sodium Chloride) 100 mls @ 100 mls/hr IVPB DAILY [facility] PRN Reason: Protocol Last Admin: 10/06/17 09:39 Dose: 100 mls/hr Sodium Chloride (Sodium Chloride 0.9%) 1,000 mls @ 150 mls/hr IV .Q6H40M [facility] Stop: 10/06/17 19:43 Last Admin: 10/06/17 10:12 Dose: 150 mls/hr Morphine Sulfate (Morphine) 2 mg IVP Q4 PRN PRN Reason: Pain, severe (8-10) Last Admin: 10/06/17 14:29 Dose: 2 mg Ondansetron HCl (Zofran Inj) 4 mg IVP Q6 PRN PRN Reason: Nausea/Vomiting Last Admin: 10/06/17 05:54 Dose: 4 mg - Labs Labs: 10/06/17 05:55 02/20/18 05:55 - Additional Findings Additional findings: Physical exam: Constitutional- cooperative, awake, alert Head- NCAT, PERRL Eye- PERRL, EOMI ENT- normal exam, MMM. Neck- normal inspection, supple, no JVD Respiratory- CTAB, no wheezes rales rhonchi Cardiovascular- RRR, +S1, +S2 no MRG GI/Abdominal- normal bowel sounds, soft, + Tender to palpation diffusely, protuberant, nondistended, no mass, no hsm Skin- warm, dry Extremities Exam- normal capillary refill, normal inspection Neurological Exam- alert, awake, oriented Psych- normal mood, normal affect Assessment and Plan - Assessment and Plan (Free Text) Plan: ASSESSMENT/PLAN 1) Sepsis due to pancolitis- slowly improving, afebrile since yesterday, still symptomatic wtih abdominal pain. BP intermittently dropped with fever last night - continue monitoring on tele - Dr. Sahu: continue current management - Regular diet - IV fluids - IV abx: Rocephin 1 gram IVPB q 12 hours and Flagyl 500 mg IVPB q 12 hours ( Vanc/Zosyn given in ED) - Morphine PRN for abdominal pain - Zofran PRN N/V - C. diff toxin negative - Influenza negative - Awaiting rest of cultures - Tylenol PRN for fever - Repeat labs in AM - WBC 10.3 -> 6.0 2) Obesity BMI 34.9 Chronic 3) Anemia- likely dilutional drop - 11.0 -> 9.1 - HD stable now - Continue to monitor, recheck in AM - no evidence of Gi bleed - moderate blood in urinalysis due to her period 4) Hypokalemia - 4.0 -> 3.2 - Dilutional - Replete PO - recheck in AM 5) DVT prophylaxis - Heparin SQ
[2017-10-06] MEDS ORDERED: Influenza Vaccine 18yr & older 0.5 ML/45 MCG SYR IM ONE (19:55)
[2017-10-06] MEDS ORDERED: Pneumococcal 23-Valent Vaccine IM ONE (19:56)
[2017-10-07 07:55] VITALS: BP 104/70; PULSE 77; RESP 20; TEMP 98; O2SAT 99
[2017-10-07 08:10] LABS: BLOOD UREA NITROGEN 6 mg/dl (7-17); GFR AFRICAN-AMERICAN > 60; GFR NON-AFRICAN AMERICAN > 60
[2017-10-07 08:11] LABS: CALCIUM 7.9 mg/dL (8.4-10.2)
[2017-10-07 08:37] LABS: HEMOGLOBIN 8.4 g/dL (12.0-16.0); MEAN CELL VOLUME 76.8 fl (81.0-99.0); MEAN CORPUSCULAR HEMOGLOBIN 24.7 pg (27.0-31.0); MEAN CORPUSCULAR HGB CONC 32.2 g/dL (33.0-37.0); RBC 3.4 Mil/uL (3.80-5.20); RED CELL DISTRIBUTION WIDTH 16.4 % (11.5-14.5); WHITE BLOOD COUNT 4.2 K/uL (4.8-10.8)
--- NOTE | 2017-10-07 08:54 | CP.PCM.PN ---
Subjective - Date & Time of Evaluation Date of Evaluation: 10/07/17 Time of Evaluation: 08:54 - Subjective Subjective: Pain present but improved. Tolerating diet. Objective - Vital Signs/Intake and Output Vital Signs (last 24 hours): Temp Pulse Resp BP Pulse Ox 98 F 77 20 104/70 99 10/07/17 07:55 10/07/17 07:55 10/07/17 07:55 10/07/17 07:55 10/07/17 07:55 - Medications Medications: Current Medications Acetaminophen (Tylenol 325mg Tab) 650 mg PO Q6 PRN PRN Reason: Fever >100.4 F Last Admin: 10/05/17 21:40 Dose: 650 mg Diphenhydramine HCl (Benadryl) 25 mg PO Q6 PRN PRN Reason: Itching / Pruritus Last Admin: 10/06/17 22:14 Dose: 25 mg Heparin Sodium (Porcine) (Heparin) 5,000 units SC Q12 [facility] PRN Reason: Protocol Last Admin: 10/06/17 20:49 Dose: 5,000 units Metronidazole (Flagyl 500mg/100ml Ns) 100 mls @ 100 mls/hr IVPB Q12 [facility] PRN Reason: Protocol Last Admin: 10/06/17 22:23 Dose: 100 mls/hr Ceftriaxone Sodium 1 gm/ (Sodium Chloride) 100 mls @ 100 mls/hr IVPB DAILY [facility] PRN Reason: Protocol Last Admin: 10/06/17 09:39 Dose: 100 mls/hr Morphine Sulfate (Morphine) 2 mg IVP Q4 PRN PRN Reason: Pain, severe (8-10) Last Admin: 10/06/17 14:29 Dose: 2 mg Ondansetron HCl (Zofran Inj) 4 mg IVP Q6 PRN PRN Reason: Nausea/Vomiting Last Admin: 10/06/17 05:54 Dose: 4 mg - Labs Labs: 10/07/17 05:35 10/07/17 05:35 - Head Exam Head Exam: ATRAUMATIC - Eye Exam Eye Exam: Normal appearance - ENT Exam ENT Exam: Mucous Membranes Moist - Respiratory Exam Respiratory Exam: Clear to Ausculation Bilateral - GI/Abdominal Exam GI & Abdominal Exam: Soft, Tenderness, Normal Bowel Sounds Additional comments: mild periumbillical tenderness Assessment and Plan (1) Pancolitis Assessment & Plan: Clinically better with improved WBC, no fever, and tolerating diet. May discharge on flagyl/cipro to complete 7 day course. Status: Acute
[2017-10-07] MEDS: metroNIDAZOLE 500mg/100ml NS 100 ML IVPB SCH (11:13)
--- NOTE | 2017-10-07 14:51 | CP.PCM.DIS ---
Provider - Provider Date of Admission: 10/05/17 18:59 Attending physician: Samir Arriola DO Primary care physician: none Consults: Dr. Joshua Sahu Time Spent in preparation of Discharge (in minutes): 25 Hospital Course - Lab Results Lab Results: Micro Results 10/05/17 18:20 Blood-Venous Blood Culture - Preliminary NO GROWTH AFTER 24 HOURS Most Recent Lab Values WBC 4.2 K/uL (4.8-10.8) L 10/07/17 05:35 RBC 3.40 Mil/uL (3.80-5.20) L 10/07/17 05:35 Hgb 8.4 g/dL (12.0-16.0) L 10/07/17 05:35 Hct 26.1 % (34.0-47.0) L 10/07/17 05:35 MCV 76.8 fl (81.0-99.0) L 10/07/17 05:35 MCH 24.7 pg (27.0-31.0) L 10/07/17 05:35 MCHC 32.2 g/dL (33.0-37.0) L 10/07/17 05:35 RDW 16.4 % (11.5-14.5) H 10/07/17 05:35 Plt Count 150 K/uL (130-400) 10/07/17 05:35 MPV 8.3 fl (7.2-11.7) 10/05/17 16:01 Neut % (Auto) 88.6 % (50.0-75.0) H 10/05/17 16:01 Lymph % (Auto) 7.3 % (20.0-40.0) L 10/05/17 16:01 [place] % (Auto) 4.0 % (0.0-10.0) 10/05/17 16:01 Eos % (Auto) 0.0 % (0.0-4.0) 10/05/17 16:01 Baso % (Auto) 0.1 % (0.0-2.0) 10/05/17 16:01 Neut # (Auto) 9.1 K/uL (1.8-7.0) H 10/05/17 16:01 Lymph # (Auto) 0.8 K/uL (1.0-4.3) L 10/05/17 16:01 [place] # (Auto) 0.4 K/uL (0.0-0.8) 10/05/17 16:01 Eos # (Auto) 0.0 K/uL (0.0-0.7) 10/05/17 16:01 Baso # (Auto) 0.0 K/uL (0.0-0.2) 10/05/17 16:01 Neutrophils % (Manual) 72 % (42-75) 10/05/17 16:01 Band Neutrophils % 10 % (0-2) H 10/05/17 16:01 Lymphocytes % (Manual) 14 % (20-50) L 10/05/17 16:01 Monocytes % (Manual) 3 % (0-10) 10/05/17 16:01 Eosinophils % (Manual) 1 % (0-7) 10/05/17 16:01 Toxic Granulation Present 10/05/17 16:01 Platelet Estimate Normal (NORMAL) 10/05/17 16:01 Polychromasia Slight 10/05/17 16:01 Hypochromasia (manual) Slight 10/05/17 16:01 Poikilocytosis (manual Slight 10/05/17 16:01 Anisocytosis (manual) Slight 10/05/17 16:01 Spherocytes Slight 10/05/17 16:01 Target Cells Slight 10/05/17 16:01 Tear Drop Cells Slight 10/05/17 16:01 Ovalocytes Slight 10/05/17 16:01 Stomatocytes Slight 10/05/17 16:01 pO2 65 mm/Hg (30-55) H 10/05/17 18:20 VBG pH 7.43 (7.32-7.43) 10/05/17 18:20 VBG pCO2 32 mmHg (40-60) L 10/05/17 18:20 VBG HCO3 23.0 mmol/L 10/05/17 18:20 VBG Total CO2 22.2 mmol/L (22-28) 10/05/17 18:20 VBG O2 Sat (Calc) 95.2 % (40-65) H 10/05/17 18:20 VBG Base Excess -2.3 mmol/L (0.0-2.0) L 10/05/17 18:20 VBG Potassium 3.3 mmol/L (3.6-5.2) L 10/05/17 18:20 Sodium 135.0 mmol/L (132-148) 10/05/17 18:20 Chloride 107.0 mmol/L (98-107) 10/05/17 18:20 Glucose 113 mg/dL (65-105) H 10/05/17 18:20 Lactate 0.7 mmol/L (0.7-2.1) 10/05/17 18:20 FiO2 21.0 % 10/05/17 18:20 Sodium 142 mmol/l (132-148) 10/07/17 05:35 Potassium 3.6 MMOL/L (3.6-5.0) 10/07/17 05:35 Chloride 110 mmol/L (98-107) H 10/07/17 05:35 Carbon Dioxide 21 mmol/L (22-30) L 10/07/17 05:35 Anion Gap 15 (10-20) 10/07/17 05:35 BUN 6 mg/dl (7-17) L 10/07/17 05:35 Creatinine 0.6 mg/dl (0.7-1.2) L 10/07/17 05:35 Est GFR ( Amer) > 60 10/07/17 05:35 Est GFR (Non-Af Amer) > 60 10/07/17 05:35 Random Glucose 103 mg/dL (65-105) 10/07/17 05:35 Calcium 7.9 mg/dL (8.4-10.2) L 10/07/17 05:35 Total Bilirubin 0.6 mg/dl (0.2-1.3) 10/05/17 16:01 AST 21 U/L (14-36) 10/05/17 16:01 ALT 32 U/L (9-52) 10/05/17 16:01 Alkaline Phosphatase 76 U/L (38-126) 10/05/17 16:01 Total Protein 7.8 G/DL (6.3-8.2) 10/05/17 16:01 Albumin 4.2 g/dL (3.5-5.0) 10/05/17 16:01 Globulin 3.6 gm/dL (2.2-3.9) 10/05/17 16:01 Albumin/Globulin Ratio 1.2 (1.0-2.1) 10/05/17 16:01 Lipase 37 U/L (23-300) 10/05/17 16:01 Venous Blood Potassium 3.3 mmol/L (3.6-5.2) L 10/05/17 18:20 Urine Color Yellow (YELLOW) 10/05/17 16:05 Urine Clarity Cloudy (Clear) 10/05/17 16:05 Urine pH 6.0 (5.0-8.0) 10/05/17 16:05 Ur Specific [place] 1.028 (1.003-1.030) 10/05/17 16:05 Urine Protein 100 mg/dL (NEGATIVE) 10/05/17 16:05 Urine Glucose (UA) Neg mg/dL (Normal) 10/05/17 16:05 Urine Ketones Negative mg/dL (NEGATIVE) 10/05/17 16:05 Urine Blood Moderate (NEGATIVE) 10/05/17 16:05 Urine Nitrate Negative (NEGATIVE) 10/05/17 16:05 Urine Bilirubin Negative (NEGATIVE) 10/05/17 16:05 Urine Urobilinogen 0.2-1.0 mg/dL (0.2-1.0) 10/05/17 16:05 Ur Leukocyte Esterase Neg [place]/uL (Negative) 10/05/17 16:05 Urine RBC (Auto) 49 /hpf (0-3) H 10/05/17 16:05 Urine Microscopic WBC 4 /hpf (0-5) 10/05/17 16:05 Ur Squamous Epith Cells 1 /hpf (0-5) 10/05/17 16:05 Urine Bacteria Rare (<OCC) 10/05/17 16:05 Hyaline Casts 3-5 /hpf (0-2) H 10/05/17 16:05 Granular Casts (Auto) 2 /lpf (0-1) 10/05/17 16:05 Stool Leukocytes, Qual Positive (NEGATIVE) H 10/06/17 01:30 Alcohol, Quantitative < 10 mg/dl (0-10) 10/05/17 16:01 C. difficile Ag & Toxin Negative (NEGATIVE) 10/06/17 01:30 Influenza Typ A,B (EIA) Negative for flu a/b (NEGATIVE) 10/05/17 16:01 - Hospital Course Hospital Course: This is a 42 year old female with no significant past medical history who presented to the ED on 10/05/2017 with the complaint of fever, chills, generalized abdominal pain, and weakness getting progressively worse. The patient stated that the pain is crampy, severe 9/10 intensity, generalized, with watery green nonbloody diarrhea x 3 days. LMP 10/03/2017. In the ED, the patient was found to be febrile with a temp of 101.3, tachycardia of 114, appearing acutely ill. Labwork shows WBC of 10.3, Hg 11.0, plt count of 231, Neutrophilia 88.6%, neutrophil count of 9.1, Band neutrophils of 10%. CT scan abdomen and pelvis reveals diffuse mural thickening and fluid, consistent with pancolitis. Given the patient's vitals she was also diagnosed with sepsis. Patient was admitted to telemetry for further workup. During her hospital stay, her tachycardia resolved with IV fluids and antibiotics. She was given Rocephin and Flagyl. Her abdominal pain improved somewhat but is still present. She was seen by Dr. Sahu who recommended continuing the current management. Today her WBC is improved, afebrile, normotensive at this time. Being discharged today in stable condition. Dr. Sahu recommends discharge today as well as per his note. 1) Sepsis due to pancolitis- improved - d/c today to home with antibiotics - Dr. Sahu: ok to discharge on antibiotics. Will give information to pt for f/u - Script for percocet for pain control (5 day supply) - Regular diet - C. diff toxin negative - Influenza negative - Stool leukocytosis + - Blood culture (-) after 24 hours - Tylenol PRN for fever - WBC 10.3 -> 6.0->4.2 2) Obesity BMI 34.9 Chronic 3) Anemia- stabilizing - likely because of dilutional and due to having her period - 11.0 -> 9.1->8.4 - HD stable now - no evidence of Gi bleed - moderate blood in urinalysis due to her period 4) Hypokalemia- resolved - 4.0 -> 3.6 - Dilutional Dispo: F/u with PMD of her choice. Information given for f/u Dr. Sahu. Return to ED for worsening of symptoms. Take antibiotics and pain medication as prescribed. Discharge Exam - Head Exam Head Exam: ATRAUMATIC - Additional Findings Additional findings: Physical exam: Constitutional- cooperative, awake, alert Head- NCAT, PERRL Eye- PERRL, EOMI ENT- normal exam, MMM. Neck- normal inspection, supple, no JVD Respiratory- CTAB, no wheezes rales rhonchi Cardiovascular- RRR, +S1, +S2 no MRG GI/Abdominal- normal bowel sounds, soft, tender to palpation but improved since admission. Protuberant, nondistended, no mass, no hsm Skin- warm, dry Extremities Exam- normal capillary refill, normal inspection Neurological Exam- alert, awake, oriented Psych- normal mood, normal affect Discharge Plan - Discharge Medications Prescriptions: Ciprofloxacin HCl [Cipro] 500 mg PO Q12H 7 Days #14 tablet Metronidazole [Flagyl] 500 mg PO TID 7 Days #21 tablet oxyCODONE/Acetaminophen [Percocet 5/325 mg Tab] 1 ea PO Q6H #20 tab - Follow Up Plan Condition: STABLE Disposition: HOME/ ROUTINE Instructions: Acute Abdomen (Belly Pain), Adult (DC) Referrals: Joshua Sahu MD [Staff Provider] -
== END 2017-10-07 14:33 | disposition home or self-care (01) | DRG 901 ==
LOC: H.ER 14:36 → H.ERHOLD 18:59 → H.MEDSURG1 10-06 17:05
PROVIDERS: ADMIT Internal Medicine; ATTEND Internal Medicine
PROC: 3E0234Z Introduction of Serum, Toxoid and Vaccine into Muscle, Percutaneous Approach (ICD-10-PCS; principal; 2017-10-07)
DX: A41.9 Sepsis, unspecified organism (principal); K51.00 Ulcerative (chronic) pancolitis without complications; E87.6 Hypokalemia; E66.9 Obesity, unspecified; Z68.34 Body mass index [BMI] 34.0-34.9, adult; D64.9 Anemia, unspecified; Z23 Encounter for immunization; F17.210 Nicotine dependence, cigarettes, uncomplicated

== ENCOUNTER 2017-11-10 14:05 | Emergency (ER) | payer SELFPAY ==
[2017-11-10 14:05] VITALS: BMI 34.9
[2017-11-10 14:34] VITALS: RESP 18; O2SAT 99
[2017-11-10] MEDS ORDERED: Sodium Chloride 0.9% 1,000 ML IV STA (16:04)
[2017-11-10 16:54] LABS: BASO % 0.4 % (0.0-2.0); EOS # 0.2 K/uL (0.0-0.7); EOS % 2.3 % (0.0-4.0); HEMOGLOBIN 10.6 g/dL (12.0-16.0); LYMPH # 2.4 K/uL (1.0-4.3); LYMPH % 31.4 % (20.0-40.0); MEAN CELL VOLUME 75.2 fl (81.0-99.0); MEAN CORPUSCULAR HEMOGLOBIN 24.8 pg (27.0-31.0); MEAN PLATELET VOLUME 8.1 fl (7.2-11.7); MONO # 0.5 K/uL (0.0-0.8); NEUT # 4.6 K/uL (1.8-7.0); NEUT % 59.9 % (50.0-75.0); NRBC % 0.1 % (0.0-0.0); RBC 4.29 Mil/uL (3.80-5.20); RED CELL DISTRIBUTION WIDTH 17.8 % (11.5-14.5); WHITE BLOOD COUNT 7.6 K/uL (4.8-10.8)
--- NOTE | 2017-11-10 16:56 | ED PDOC ---
HPI: Abdomen Time Seen by Provider: 11/10/17 15:30 Chief Complaint (Nursing): Abdominal Pain History Per: Patient Additional Complaint(s): Pt. states she had an abd US done today and was called by [facility] to come to ED as she may have cholecystitis. Reports she's had RUQ pain since 09/30/2017 and she was seen in [facility] ED and admitted on 10/05/2017 for pancolitis and also had gallstones at that time but no cholecystitis. RUQ pain has been intermittent but has not increased in severity from 09/30/2017. Reports also having intermittent nausea but no vomiting. Pain is worse after eating any types of food. Denies fever, vomiting, diarrhea, previous abdominal surgeries, chest pain , SOB, palpitations, hemoptysis. Past Medical History Reviewed: Historical Data, Nursing Documentation, Vital Signs Vital Signs: Last Vital Signs Temp 98.3 F 11/10/17 18:50 Pulse 88 11/10/17 18:50 Resp 18 11/10/17 18:50 BP 140/78 11/10/17 18:50 Pulse Ox 99 11/10/17 18:50 - Medical History PMH: Denies: Diabetes - Family History Family History: States: Unknown Family Hx - Home Medications Home Medications: Ambulatory Orders Medication Instructions Recorded Ibuprofen [Motrin Tab] 400 mg PO PRN PRN 10/06/17 Acetaminophen [Tylenol 325mg tab] 650 mg PO Q6 PRN tab 10/07/17 Ciprofloxacin HCl [Cipro] 500 mg PO Q12H 7 Days #14 tablet 10/07/17 Metronidazole [Flagyl] 500 mg PO TID 7 Days #21 tablet 10/07/17 oxyCODONE/Acetaminophen [Percocet 1 ea PO Q6H #20 tab 10/07/17 5/325 mg Tab] Pantoprazole Sodium [Protonix] 40 mg PO DAILY PRN #10 tablet. 11/10/17 - Allergies Allergies/Adverse Reactions: Allergies Allergy/AdvReac Type Severity Reaction Status Date / Time No Known Allergies Allergy Verified 01/21/16 23:27 Review of Systems ROS Statement: Except As Marked, All Systems Reviewed And Found Negative Gastrointestinal: Positive for: Nausea, Abdominal Pain Physical Exam - Physical Exam Appears: Positive for: Well, Non-toxic, No Acute Distress Skin: Positive for: Normal Color, Warm. Negative for: Rash, Jaundice Eye Exam: Positive for: Normal appearance. Negative for: Scleral icterus Cardiovascular/Chest: Positive for: Regular Rate, Rhythm Respiratory: Positive for: Normal Breath Sounds. Negative for: Respiratory Distress Gastrointestinal/Abdominal: Positive for: Normal Exam, Bowel Sounds, Soft, Tenderness (minimal epigastric tenderness; no RUQ tenderness; negative Mayorga's sign). Negative for: Organomegaly Back: Positive for: Normal Inspection. Negative for: L CVA Tenderness, R CVA Tenderness Neurologic/Psych: Positive for: Alert, Oriented. Negative for: Aphasia, Facial Droop - Laboratory Results Result Diagrams: 11/10/17 16:50 11/10/17 16:50 - ECG O2 Sat by Pulse Oximetry: 99 - Progress ED Course And Treament: Labs ordered. Abd US (11/10/2017): cholelithiasis with borderline wall thickening and positive sonographic Mayorga's sign; findings are non-specific but raise the possibility of acute cholecystitis [address] Lloyd and who then spoke with Dr. Gamboa regarding case and cleared pt. for discharge. Requests that pt. f/u in surgery clinic and for pt. to be prescribed protonix. 1836 On re-evaluation, pt. in no distress. Informed of plan and instructed to f/u with [facility] for further evaluation. Disposition - Clinical Impression Clinical Impression: Gastritis - Patient ED Disposition Is Patient to be Admitted: No - Disposition [facility]errals: [facility] [Outside] Disposition: Routine/Home Disposition Time: 18:37 Condition: IMPROVED Additional Instructions: Follow up with [facility] for further evaluation. Return to ED immediately if symptoms persist or worsen. Prescriptions: Pantoprazole Sodium [Protonix] 40 mg PO DAILY PRN #10 tablet.dr BONE Reason: abdominal pain Instructions: Gastritis (DC) Forms: [employer] (Chilean) Print Language: SETSWANA
[2017-11-10 17:08] LABS: ALB/GLOB RATIO 1.1 (1.0-2.1); ALBUMIN 4.3 g/dL (3.5-5.0); ALT/SGPT 44 U/L (9-52); AST/SGOT 25 U/L (14-36); BLOOD UREA NITROGEN 15 mg/dl (7-17); CALCIUM 9.6 mg/dL (8.4-10.2); GFR AFRICAN-AMERICAN > 60; GFR NON-AFRICAN AMERICAN > 60; LIPASE 88 U/L (23-300)
[2017-11-10 17:19] LABS: PARTIAL THROMBOPLASTIN TIME 30.8 Seconds (25.6-37.1); PROTHROMBIN TIME 11.2 Seconds (9.8-13.1)
[2017-11-10 18:12] LABS: SQUAMOUS EPITHIAL < 1 /hpf (0-5); URINE BILIRUBIN NEGATIVE (NEGATIVE); URINE BLOOD NEGATIVE (NEGATIVE); URINE CLARITY CLEAR (Clear); URINE COLOR STRAW (YELLOW); URINE GLUCOSE (UA) NEG (Normal); URINE LEUKOCYTE ESTERASE NEG Leu/uL (Negative); URINE PROTEIN NEGATIVE (NEGATIVE); URINE UROBILINOGEN 0.2-1.0 mg/dL (0.2-1.0)
--- NOTE | 2017-11-10 18:52 | CP.PCM.CON ---
History of Present Illness - History of Present Illness History of Present Illness: General Surgery Consult Note for Dr. Gamboa This 42F with no PMH presents to the ED due to 2 months of constant abdominal pain. Nothing makes it better and food makes it worse particularly coffee and tea. She has not taken any medication for this abdominal pain. She was seen earlier today in clinic and went for an outpatient US which showed GB stones a 4mm CBD and a 3.15mm GB wall. She denies any fevers or chills at home reports nausea no vomiting. She has regular bowel movements. PMH: Denies PSH: Denies ALL: NKDA Social: 08/20ppd, denies ETOH or drugs Review of Systems - Review of Systems All systems: reviewed and no additional remarkable complaints except - Gastrointestinal Gastrointestinal: Abdominal Pain, Dyspepsia, Nausea. absent: Dysphagia, Hematemesis, Hematochezia, Loose Stools, Vomiting Past Patient History - Infectious Disease Hx of Infectious Diseases: None - Past Social History Smoking Status: Never Smoked - MUSCULOSKELETAL/RHEUMATOLOGICAL Hx Falls: No - PSYCHIATRIC Hx Substance Use: No - SURGICAL HISTORY Hx Surgeries: No - ANESTHESIA Hx Anesthesia: No Meds Home Medications: Home Medication List Medication Instructions Recorded Confirmed Type Pantoprazole Sodium [Protonix] 40 mg PO DAILY PRN #10 tablet. 11/10/17 Rx Allergies/Adverse Reactions: Allergies Allergy/AdvReac Type Severity Reaction Status Date / Time No Known Allergies Allergy Verified 01/21/16 23:27 - Medications Medications: Current Medications Sodium Chloride (Sodium Chloride 0.9%) 1,000 mls @ 150 mls/hr IV .Q6H40M STA Stop: 11/10/17 22:43 Last Admin: 11/10/17 17:28 Dose: 150 mls/hr Physical Exam - Constitutional Appears: Non-toxic, No Acute Distress - Head Exam Head Exam: ATRAUMATIC, NORMOCEPHALIC - Eye Exam Eye Exam: EOMI, Normal appearance - ENT Exam ENT Exam: Mucous Membranes Moist - Respiratory Exam Respiratory Exam: NORMAL BREATHING PATTERN - Cardiovascular Exam Cardiovascular Exam: +S1, +S2 - GI/Abdominal Exam GI & Abdominal Exam: Soft, Tenderness. absent: Distended, Firm, Guarding, Hernia, Rigid Additional comments: Generalized tenderness most prominent in epigastrium, no murphys sign - Neurological Exam Neurological exam: Alert, Oriented x3 - Psychiatric Exam Psychiatric exam: Normal Affect, Normal Mood - Skin Skin Exam: Dry, Intact Results - Vital Signs Recent Vital Signs: Last Vital Signs Temp 98.4 F 11/10/17 14:30 Pulse 74 11/10/17 14:30 Resp 18 11/10/17 14:30 BP 137/67 11/10/17 14:30 Pulse Ox 99 11/10/17 18:38 - Labs Result Diagrams: 11/10/17 16:50 11/10/17 16:50 Labs: Laboratory Results - last 24 hr 11/10/17 11/10/17 11/10/17 16:25 16:50 16:50 WBC 7.6 RBC 4.29 Hgb 10.6 L Hct 32.3 L MCV 75.2 L MCH 24.8 L MCHC 33.0 RDW 17.8 H Plt Count 273 MPV 8.1 Neut % (Auto) 59.9 Lymph % (Auto) 31.4 [place] % (Auto) 6.0 Eos % (Auto) 2.3 Baso % (Auto) 0.4 Neut # (Auto) 4.6 Lymph # (Auto) 2.4 [place] # (Auto) 0.5 Eos # (Auto) 0.2 Baso # (Auto) 0.0 PT INR APTT Sodium 141 Potassium 4.3 Chloride 102 Carbon Dioxide 24 Anion Gap 19 BUN 15 Creatinine 0.7 Est GFR ( Amer) > 60 Est GFR (Non-Af Amer) > 60 Random Glucose 108 H Calcium 9.6 Total Bilirubin 0.2 AST 25 ALT 44 Alkaline Phosphatase 92 Total Protein 8.0 Albumin 4.3 Globulin 3.7 Albumin/Globulin Ratio 1.1 Lipase 88 Urine Color Urine Clarity Urine pH Ur Specific [place] Urine Protein Urine Glucose (UA) Urine Ketones Urine Blood Urine Nitrate Urine Bilirubin Urine Urobilinogen Ur Leukocyte Esterase Urine RBC (Auto) Urine Microscopic WBC Ur Squamous Epith Cells Blood Type O POSITIVE Antibody Screen Negative BBK History Checked Patient has bt 11/10/17 11/10/17 16:50 17:30 WBC RBC Hgb Hct MCV MCH MCHC RDW Plt Count MPV Neut % (Auto) Lymph % (Auto) [place] % (Auto) Eos % (Auto) Baso % (Auto) Neut # (Auto) Lymph # (Auto) [place] # (Auto) Eos # (Auto) Baso # (Auto) PT 11.2 INR 1.0 APTT 30.8 Sodium Potassium Chloride Carbon Dioxide Anion Gap BUN Creatinine Est GFR ( Amer) Est GFR (Non-Af Amer) Random Glucose Calcium Total Bilirubin AST ALT Alkaline Phosphatase Total Protein Albumin Globulin Albumin/Globulin Ratio Lipase Urine Color Straw Urine Clarity Clear Urine pH 7.0 Ur Specific [place] 1.013 Urine Protein Negative Urine Glucose (UA) Neg Urine Ketones Negative Urine Blood Negative Urine Nitrate Negative Urine Bilirubin Negative Urine Urobilinogen 0.2-1.0 Ur Leukocyte Esterase Neg Urine RBC (Auto) 1 Urine Microscopic WBC < 1 Ur Squamous Epith Cells < 1 Blood Type Antibody Screen BBK History Checked Assessment & Plan - Assessment and Plan (Free Text) Assessment: 42F with abdominal pain secondary to biliary colic vs gastritis Vital Signs stable No Leukocytosis or Left Shift No elevation of liver enzymes GB US shows stones without any significant sonographic signs of acute cholecystitis Recommend PPI Return to ed if you develop fevers chills chest pain SOB or any other alarming symptoms Followup with Dr. Gamboa in office tomorrow Discussed with Dr. Bee Lloyd PGY2
[2017-11-10 18:57] VITALS: BP 140/78; PULSE 88; TEMP 98.3
== END 2017-11-10 18:50 | disposition home or self-care (01) ==
LOC: H.ER 14:05
DX: K29.70 Gastritis, unspecified, without bleeding (principal)
CPT/HCPCS: 80053; 81003; 81025; 83690; 85025; 85610; 85730; 86850; 86900; 96360; 99285; J7040

== ENCOUNTER 2018-03-17 10:42 | Day surgery (SDC) | payer SELFPAY ==
[2018-03-15 08:11] VITALS: BMI 33.9
[2018-03-17] MEDS ORDERED: ceFAZolin IV 1 gm in Dextrose 2 GM/100 ML BAG IVPB ONE (11:09)
[2018-03-17] MEDS ORDERED: Midazolam 2 MG/2 ML VIAL ONE (11:41)
[2018-03-17] MEDS ORDERED: Propofol 10 mg/ml Inj (20 ML) ONE ×2 (11:41→12:17)
[2018-03-17] MEDS ORDERED: Rocuronium 10 mg/ml (5 ml) ONE ×2 (11:42→12:59)
[2018-03-17] MEDS ORDERED: Succinylcholine 200 mg/10 ml Inj IV ONE (11:42)
--- NOTE | 2018-03-17 11:57 | CP.SDSHP ---
<Arely Doe - Last Filed: 03/17/18 13:54> Same Day Surgery H & P - History Proposed Procedure: Laparoscopic cholecystectomy Pre-Op Diagnosis: Cholelithiasis - Previous Medical/Surgical History Pain: 4.Moderate Pain Previous Surgical History: Denies - Allergies Allergies: Allergies No Known Allergies Allergy (Verified 03/17/18 11:34) - Physical Exam General Appearance: NAD, well developed Vital Signs: Vital Signs 03/17/18 03/17/18 11:14 11:20 Temperature 98.5 F Pulse Rate 53 L 53 L Respiratory 20 Rate Blood Pressure 125/66 O2 Sat by Pulse 100 Oximetry Mental Status: Alert & Oriented x3 Neuro: WNL Heart: WNL Lungs: WNL GI: Other (Tender to palpation in epigastric area and LUQ, no masses appreciated ) Social History: Smoking (10 yr hx of #3 cigarettes daily) - Impression Impression: symptomatic cholelithiasis - Date & Time Date: 03/17/18 Time: 11:56 Short Stay Discharge - Short Stay Discharge Admitting Diagnosis/Reason for Visit: K80.20 Disposition: HOME/ ROUTINE Referrals: Billie Goodson MD [Primary Care Provider] - Follow-up: Please call Dr. Perez's clinic to follow up in 1-2 weeks Instructions: Cholecystectomy, Laparoscopic Surgery, Gallstones (DC) Additional Instructions (Diet, Activity): Ok to resume normal diet No heavy lifting for 4-6 weeks You have glue over your incisions, please do not remove it, it will fall off on it's own Ok to shower <Falguni Murray - Last Filed: 03/17/18 14:00> Same Day Surgery H & P - Allergies Allergies: Allergies No Known Allergies Allergy (Verified 03/17/18 11:34) - Physical Exam Vital Signs: Vital Signs 03/17/18 03/17/18 11:14 11:20 Temperature 98.5 F Pulse Rate 53 L 53 L Respiratory 20 Rate Blood Pressure 125/66 O2 Sat by Pulse 100 Oximetry
[2018-03-17] MEDS ORDERED: Lactated Ringer's 1,000 ML IV ONE ×3 (11:58→14:52)
[2018-03-17] MEDS ORDERED: Dexamethasone 4 mg/1 ml ONE (12:16)
[2018-03-17] MEDS ORDERED: Bupivacaine 0.5% Inj(30mL) IJ ONE (12:17)
[2018-03-17] MEDS ORDERED: Neostigmine 1:1000 (1 mg/ml) Inj ONE (12:22)
[2018-03-17] MEDS ORDERED: Lidocaine 1% w Epi 1:100,000 Inj ONE (12:42)
[2018-03-17] MEDS ORDERED: Oxycodone/Acetaminophen 5/325 mg Tab PO PRN (13:56)
--- NOTE | 2018-03-17 13:58 | PCM.SURG1 ---
Surgeon's Initial Post Op Note - Surgeon's Notes Surgeon: Dr. Perez Home Care Manager Rn: Dr. Doe PGY2, Dr. Murray PGY4 Type of Anesthesia: General Endo Anesthesia Administered By: Carlos Pre-Operative Diagnosis: Symptomatic Cholelithiasis Operative Findings: Chronic Cholecystitis, Cholelithiasis Post-Operative Diagnosis: Chronic Cholecystitis, Cholelithiasis Operation Performed: Laparoscopic Cholecystectomy Specimen/Specimens Removed: Gallbladder Estimated Blood Loss: EBL {In ML}: 5 Blood Products Given: N/A Drains Used: No Drains Post-Op Condition: Good Date of Surgery/Procedure: 03/17/18 Time of Surgery/Procedure: 13:59
[2018-03-17] MEDS ORDERED: Lactated Ringer's 1,000 ML IV SCH (14:00)
[2018-03-17] MEDS ORDERED: HYDROmorphone 0.5 mg/0.5 ml ISec IVP PRN (14:00)
[2018-03-17] MEDS ORDERED: Oxycodone/Acetaminophen 5/325 mg Tab PO ONE (16:40)
[2018-03-17 18:12] VITALS: O2SAT 99
[2018-03-17 18:37] VITALS: BP 129/66; PULSE 54; RESP 18; TEMP 99.1
--- NOTE | 2018-03-18 08:33 | OP ---
Copied To: Falguni Murray DO Attending MD: Marcin Perez MD PROCEDURE DATE: 03/17/2018 SURGEON: Marcin Perez MD ASSISTANTS: Falguni Murray DO, PGY-4 and Arely Doe DO, PGY-2 ANESTHESIOLOGIST: Dr. Rob Gonzalez ANESTHESIA: General endotracheal. PREOPERATIVE DIAGNOSIS: Symptomatic cholelithiasis. POSTOPERATIVE DIAGNOSIS: Chronic cholelithiasis. FINDINGS: Chronically inflamed gallbladder. BLOOD LOSS: 5 mL. DRAINS: None. COMPLICATIONS: None. DESCRIPTION OF PROCEDURE: This is a 42-year-old obese prediabetic female patient who presented after being evaluated with intermittent right upper quadrant pain for the past three months, seen in the emergency room, diagnosed with cholelithiasis without cholecystitis. to schedule elective cholecystectomy. The patient was consented for laparoscopic cholecystectomy, possible open. The patient was placed on the operating table in the supine position. General anesthesia was induced. A timeout was completed verifying correct patient, procedure site, positioning prior to the procedure. Preoperative antibiotics were administered. A nasogastric tube was inserted. The abdomen was prepped and draped in the usual sterile fashion. An infraumbilical incision was made. The Veress needle was introduced, and the abdomen was insufflated. An 11 trocar was inserted into the infraumbilical incision. Camera introduced. An epigastric incision was completed for a size 11 trocar, and then two 5 mm trocar incisions were made in the left mid axillary flank, lower abdominal quadrant. We attempted to grasp the fundus of the gallbladder, and the decision was to decompress the gallbladder using a needle for decompression which was performed with findings of hydrops of the gallbladder. After decompression of the gallbladder, the fundus of the gallbladder was grasped and retracted to the contralateral shoulder above the liver. An extensive number of adhesions of omentum were noted on the body of the gallbladder and were bluntly dissected off the gallbladder. Traction was placed on the fundus of the gallbladder. The cystic duct was dissected and identified, and three clips were placed prior to division of the cystic duct. Dissection was performed posterior to the cystic duct. The cystic artery was identified and triply clipped and then divided starting at the fundus and continuing downward to the cystic duct and artery. The peritoneum overlying was excised, and the gallbladder was dissected off the liver bed. The gallbladder was successfully removed from the liver bed using spatula electrocautery with good hemostasis. The gallbladder was then placed into an EndoCatch bag and removed through the infraumbilical incision. The infraumbilical incision was closed using a suture in a [id number] configuration with a safety suture also applied. The fascia was closed using the 0 Vicryl suture. The skin was then closed using 4-0 Monocryl with good hemostasis. The patient tolerated the procedure well, was extubated in the operating room, and taken to the postanesthesia care unit in stable condition. Falguni Murray DO Marcin Perez MD
== END 2018-03-17 19:30 | disposition home or self-care (01) ==
LOC: H.OPSURG 10:42
PROVIDERS: ATTEND Specialist
DX: K80.20 Calculus of gallbladder without cholecystitis without obstruction (principal); R12 Heartburn; D64.9 Anemia, unspecified
CPT/HCPCS: 36415; 47562; 86850; 86900; 88304; J0330; J0690; J1100; J1170; J1885; J2001; J2250; J2405; J2704; J2710; J2765; J3010; J7120

== ENCOUNTER 2018-10-11 18:28 | Emergency (ER) | payer SELFPAY ==
[2018-10-11 18:29] VITALS: BMI 33.9
[2018-10-11 18:55] VITALS: O2SAT 100
[2018-10-11] MEDS ORDERED: Sodium Chloride 0.9% 1,000 ML IV STA (19:58)
[2018-10-11 21:13] LABS: BASO % 0.4 % (0.0-2.0); EOS # 0.2 K/uL (0.0-0.7); EOS % 2.8 % (0.0-4.0); HEMOGLOBIN 9.4 g/dL (12.0-16.0); LYMPH # 1.9 K/uL (1.0-4.3); LYMPH % 22.9 % (20.0-40.0); MEAN CELL VOLUME 71.8 fl (81.0-99.0); MEAN CORPUSCULAR HEMOGLOBIN 23.1 pg (27.0-31.0); MEAN CORPUSCULAR HGB CONC 32.2 g/dL (33.0-37.0); MEAN PLATELET VOLUME 8.1 fl (7.2-11.7); MONO # 0.5 K/uL (0.0-0.8); MONO % 6.3 % (0.0-10.0); NEUT # 5.7 K/uL (1.8-7.0); NEUT % 67.6 % (50.0-75.0); NRBC % 0.1 % (0.0-0.0); RBC 4.09 Mil/uL (3.80-5.20); RED CELL DISTRIBUTION WIDTH 19.2 % (11.5-14.5); WHITE BLOOD COUNT 8.4 K/uL (4.8-10.8)
--- NOTE | 2018-10-11 21:32 | ED PDOC ---
HPI: Abdomen Time Seen by Provider: 10/11/18 19:31 Chief Complaint (Nursing): GI Problem Chief Complaint (Provider): Nausea History Per: Patient History/Exam Limitations: no limitations Onset/Duration Of Symptoms: Days (x7) Current Symptoms Are (Timing): Still Present Additional Complaint(s): 43 y/o female with a PMHx of anemia presents to the ED for evaluation of nausea associated with lower abdominal pain and breast tenderness, onset one week ago. Patient notes last normal menstrual period was on 09/16/2018. Patient reports of feeling tired since onset. Otherwise, patient denies vaginal discharge or bleeding. PMD: Clinic Last Menstral Period: 09/16/2018 Past Medical History Reviewed: Historical Data, Nursing Documentation, Vital Signs Vital Signs: Last Vital Signs Temp 98.6 F 10/11/18 19:16 Pulse 68 10/11/18 19:16 Resp 18 10/11/18 19:16 BP 121/83 10/11/18 19:16 Pulse Ox 100 10/11/18 19:16 - Medical History PMH: Anemia Denies: Diabetes, Chronic Kidney Disease - Surgical History Surgical History: Cholecystectomy - Family History Family History: States: No Known Family Hx - Social History Current smoker - smoking cessation education provided: No - Home Medications Home Medications: Ambulatory Orders Medication Instructions Recorded oxyCODONE/Acetaminophen [Percocet 1 tab PO Q4 PRN MDD n 03/17/18 5/325 mg Tab] Meclizine [Meclizine*] 25 mg PO Q6 PRN #30 tab 10/12/18 Multivit/Folic Acid/I 1 tab PO DAILY #100 tab 10/12/18 [ Plus] - Allergies Allergies/Adverse Reactions: Allergies Allergy/AdvReac Type Severity Reaction Status Date / Time No Known Allergies Allergy Verified 03/17/18 11:34 Review of Systems ROS Statement: Except As Marked, All Systems Reviewed And Found Negative (as per HPI) Constitutional: Positive for: Other (Breast tenderness) Gastrointestinal: Positive for: Nausea, Abdominal Pain Physical Exam - Reviewed Nursing Documentation Reviewed: Yes Vital Signs Reviewed: Yes - Physical Exam Appears: Positive for: No Acute Distress Head Exam: Positive for: ATRAUMATIC, NORMOCEPHALIC Skin: Positive for: Warm, Dry Eye Exam: Positive for: EOMI, PERRL Respiratory: Positive for: Normal Breath Sounds. Negative for: Respiratory Distress Gastrointestinal/Abdominal: Positive for: Soft, Tenderness (suprpubic tenderness to palpation). Negative for: Mass, Guarding, Rebound Back: Positive for: Normal Inspection. Negative for: Decreased ROM Extremity: Negative for: Pedal Edema, Deformity Neurologic/Psych: Positive for: Alert, Oriented - Laboratory Results Result Diagrams: 10/11/18 20:55 - ECG O2 Sat by Pulse Oximetry: 100 (RA) Pulse Ox Interpretation: Normal - CT Scan/US US OB transvaginal Other Rad Studies (CT/US): Read By Radiologist, Radiology Report Reviewed (see MDM note) Medical Decision Making Medical Decision Making: Time: 1957 Impression: Pelvic pain and early Differentials include but not limited to ectopic , early , UTI, Cystitis and vomiting and . Plan: -- Beta-HCG, Quantitative -- ED Urine -- ED Urine Dipstick -- CBC with Differentials -- Sodium Chloride IV 1000 mls/hr -- IV Insertion -- US OB Transvaginal 23:02 US OB transvaginal read and reviewed by radiologist FINDINGS: GESTATION: UTERUS: Uterus measures 10.4 x 6.5 x 8.9 cm and appears anteverted. CERVIX: Cervix measures 4.7 cm in length and appears closed. OVARIES: Unremarkable. No mass. FREE FLUID: No free fluid. MISCELLANEOUS: Inferior to the gestational sac, there is a subchorionic hemorrhage measuring 1.9 x 1.3 x 2.2 cm. A gestational sac is present. Mean sac diameter measures 3.0 cm compatible with an estimated ultrasound age of 8.0 weeks. A yolk sac is present. The pole is present. [place] rump length measures 1.8 cm compatible with an estimated ultrasound age of 8.2 weeks. heart motion is observed at 168 beats per minute. Right ovary measures 2.5 x 2.0 x 2.4 cm. Normal Doppler flow is seen in the right ovary. The left ovary is not adequately visualized by ultrasound. IMPRESSION: 1. Single live intrauterine gestation of approximately 8.2 weeks. 2. Subchorionic hemorrhage as described. 3. heart motion is observed as described. 4. Nonvisualization of the left ovary. DW pt findings and plan of care. Threatened miscarriage instructions for subchorionic hemorrhage in . followup with women's health Scribe Attestation: Documented by Sydnee Vuong, acting as a scribe for Yudi Orantes MD. Provider Scribe Attestation: All medical record entries made by the Scribe were at my direction and personally dictated by me. I have reviewed the chart and agree that the record accurately reflects my personal performance of the history, physical exam, medical decision making, and the department course for this patient. I have also personally directed, reviewed, and agree with the discharge instructions and disposition. Documented by Rosalia Pizarro, acting as a scribe for Yudi Orantes MD. Provider Scribe Attestation: All medical record entries made by the Scribe were at my direction and personally dictated by me. I have reviewed the chart and agree that the record accurately reflects my personal performance of the history, physical exam, medical decision making, and the department course for this patient. I have also personally directed, reviewed, and agree with the discharge instructions and disposition. Disposition - Clinical Impression Clinical Impression: Threatened miscarriage, Abdominal pain in Counseled Patient/Family Regarding: Studies Performed, Diagnosis, Need For Followup, Rx Given - Disposition Referrals: [facility] [Outside] ([facility] JANNET EN 2-3 BLOCK A CONTINUAR TRATIMIENTE) Disposition: Routine/Home Disposition Time: 23:50 Condition: STABLE Prescriptions: Meclizine [Meclizine*] 25 mg PO Q6 PRN #30 tab PRN Reason: Nausea/Vomiting Multivit/Folic Acid/I [ Plus] 1 tab PO DAILY #100 tab Instructions: Threatened Miscarriage (DC), Stomach Pain in Early Print Language: FRENCH
[2018-10-12 00:26] VITALS: BP 129/54; PULSE 69; RESP 20; TEMP 99
--- NOTE | 2018-10-12 11:46 | US ---
Date of service: 10/11/2018 PROCEDURE: First trimester ultrasound HISTORY: pelvic pain COMPARISON: None TECHNIQUE: Standard protocol for this study/examination. FINDINGS: LMP: Unknown Prior examinations from the current : None TECHNIQUE: Real-time 2D imaging, duplex and color Doppler. FINDINGS: Cardiac activity: Present Rate: 168 BPM Measurements: [place] rump length: 1.79 cm Gestational age based on CRL 8 weeks 2 days Gestational age 8 weeks based on gestational sac measurement 3.04 cm Gestational age derived from LMP: Cannot be ascertained based in the absence of a reliable/ known LMP CINDY based on LMP: Cannot be ascertained based in the absence of a reliable/ known LMP CINDY based on biometry: 05/22/2019 Gestational concordance cannot be determined absent reliable LMP Yolk sac identified Cervix: No Cervical abnormalities: Negative examination for cervical dilatation or effacement. Closed cervix measuring 4.67 cm Subchorionic hemorrhage: None UTERUS: 6.5 x 8.9 x 10.4 cm. Location of fibroid and size: Submucosal midline interposed between the gestational sac and cervix measures 1.3 x 1.9 x 2.2 cm ADNEXA: Right: 2 x 2.4 x 2.5 cm. Normal Doppler arterial waveform documented. Left: Not visible Fluid in the cul-de-sac: None. IMPRESSION: Eight weeks 1 day live intrauterine gestation. Absence of LMP precludes evaluation for gestational concordance. Limitations of the current examination: Non visible left adnexa. Concordant findings (preliminary report) provided by [facility].
== END 2018-10-12 00:24 | disposition home or self-care (01) ==
LOC: H.ER 18:28
DX: O20.0 Threatened abortion (principal); O26.899 Other specified pregnancy related conditions, unspecified trimester
CPT/HCPCS: 76817; 81025; 84702; 85025; 96360; 99283; J2765; J7030

== ENCOUNTER 2018-10-28 20:03 | Emergency (ER) | payer SELFPAY ==
[2018-10-28 20:03] VITALS: BMI 33.9
[2018-10-28 20:14] VITALS: BP 138/75; PULSE 69; RESP 16; TEMP 98.6; O2SAT 100
--- NOTE | 2018-10-28 20:51 | ED PDOC ---
HPI: Trauma/Fall - HPI Time Seen by Provider: 10/28/18 20:24 Chief Complaint (Nursing): Trauma Chief Complaint (Provider): fall History Per: Patient, Family (son) History/Exam Limitations: no limitations Injury Occurred (Timing): Just Before Arrival Additional Complaint(s): 43 y/o female, approximately 10 weeks , presents for evaluation of fall prior to arrival. Patient states she tripped going down steps in her home, tried to use left hand to hold on to wall to prevent fall, which was unable to hold her and it slipped, causing her to fall onto left buttock and slide down 3 steps. Patient complaining of left buttock pain, left thigh pain, left hand pain, and lower abdominal pain. Denies head injury, neck pain, back pain, bowel/bladder incontinence, numbness/weakness of lower extremities, dysuria, hematuria, vaginal bleeding/discharge Past Medical History Reviewed: Historical Data, Nursing Documentation, Vital Signs Vital Signs: Last Vital Signs Temp 98.6 F 10/28/18 20:13 Pulse 69 10/28/18 20:13 Resp 16 10/28/18 20:13 BP 138/75 10/28/18 20:13 Pulse Ox 100 10/28/18 20:13 - Medical History PMH: Anemia Denies: Diabetes, Chronic Kidney Disease - Surgical History Surgical History: Appendectomy, Cholecystectomy - Family History Family History: States: Unknown Family Hx - Home Medications Home Medications: Ambulatory Orders Medication Instructions Recorded oxyCODONE/Acetaminophen [Percocet 1 tab PO Q4 PRN MDD n 03/17/18 5/325 mg Tab] Meclizine [Meclizine*] 25 mg PO Q6 PRN #30 tab 10/12/18 Multivit/Folic Acid/I 1 tab PO DAILY #100 tab 10/12/18 [ Plus] - Allergies Allergies/Adverse Reactions: Allergies Allergy/AdvReac Type Severity Reaction Status Date / Time No Known Allergies Allergy Verified 10/28/18 20:11 Review of Systems ROS Statement: Except As Marked, All Systems Reviewed And Found Negative Genitourinary Female: Positive for: Pelvic Pain Musculoskeletal: Positive for: Hand Pain (left), Leg Pain (left buttock, left leg) Physical Exam - Reviewed Nursing Documentation Reviewed: Yes Vital Signs Reviewed: Yes - Physical Exam Appears: Positive for: Well, Non-toxic, No Acute Distress Head Exam: Positive for: ATRAUMATIC, NORMAL INSPECTION, NORMOCEPHALIC Skin: Positive for: Normal Color Eye Exam: Positive for: Normal appearance ENT: Positive for: Normal ENT Inspection Cardiovascular/Chest: Positive for: Regular Rate, Rhythm Respiratory: Positive for: Normal Breath Sounds Pulses-Radial (L): 2+ Pulses-Radial (R): 2+ Gastrointestinal/Abdominal: Positive for: Bowel Sounds, Soft. Negative for: Tenderness Back: Positive for: Muscle Spasm (left gluteal tenderness without edema, ecchymosis). Negative for: L CVA Tenderness, R CVA Tenderness, Vertebral Tenderness, Decreased ROM Extremity: Positive for: Tenderness (radial aspect left wrist, 1st metacarpal tender to palpate. FROM. Pain to left wrist with flexion/extension. No snuffbox tenderness, swelling, deformity noted), Capillary Refill (<3 sec b/l UE) Neurological/Psych: Positive for: Awake, Alert, Oriented (x3) - ECG O2 Sat by Pulse Oximetry: 100 - Other Rad xray left wrist X-Ray: Viewed By Me X-Ray Interpretation: no acute findings xray left hand X-Ray: Viewed By Me, Read By Radiologist X-Ray Interpretation: no acute findings - Progress ED Course And Treament: -upreg -tylenol PO -xray left hand/left wrist -OB TV u/s EXAM: US Obstetrical, Complete <14 weeks CLINICAL HISTORY: Fall pain TECHNIQUE: Transvaginal and transabdominal imaging of the maternal pelvis and a <14 week gestation with image documentation. COMPARISON: None provided. FINDINGS: GESTATION: A single living IUP identified estimated to be 11 weeks and 3 days in age, +/- 6 days. cardiac rate 175 BPM. The previously described inferior subchorionic hemorrhage appears to have undergone partial resolution. UTERUS: Unremarkable. No myometrial mass. CERVIX: Closed. Unremarkable. OVARIES: Not well identified. FREE FLUID: No free fluid. IMPRESSION: 1. Single living intrauterine . No acute abnormality. 2. There appears to have been appropriate interval growth Patient educated on findings, left wrist placed in left wrist immobilizer Advised follow up PMD and Health And Wellness Manager within 2-3 days RICE Tylenol PRN pain Return precautions given Disposition - Clinical Impression Clinical Impression: Left buttock pain, Left wrist pain, Left hand pain, Abdominal pain in - Patient ED Disposition Is Patient to be Admitted: No Counseled Patient/Family Regarding: Studies Performed, Diagnosis, Need For Followup - Disposition Disposition: Routine/Home Disposition Time: 22:57 Condition: IMPROVED Instructions: Common Wrist Injuries (DC), Contusion (DC), Stomach Pain in Early Forms: [facility] [employer] (Japanese) Print Language: AMHARIC
--- NOTE | 2018-10-29 11:11 | US ---
Date of service: 10/28/2018 PROCEDURE: First trimester ultrasound HISTORY: fall, pain; approx 10 wks gsetation COMPARISON: 10/11/2018 TECHNIQUE: Standard protocol for this study/examination. FINDINGS: LMP: Unknown Prior examinations from the current : 10/11/2018 TECHNIQUE: Real-time 2D imaging, duplex and color Doppler. FINDINGS: Cardiac activity: Present Rate: 172 BPM Measurements: [place] rump length: 0.8 cm Gestational age based on CRL 11 weeks 4 days Gestational age 11 weeks 2 days based on gestational sac measurement 5.35 cm Gestational age derived from LMP: Cannot be ascertained based in the absence of a reliable/ known LMP CINDY based on LMP: Cannot be ascertained based in the absence of a reliable/ known LMP CINDY based on biometry: 05/16/2019 Yolk sac identified Cervix: No Cervical abnormalities: Negative examination for cervical dilatation or effacement. Closed cervix measuring 4.60 cm Subchorionic hemorrhage: None UTERUS: 8.7 x 11.2 x 13.7 cm. Submucosal fibroid midline lower uterine segment 2.2 x 2.4 x 2.7 cm. ADNEXA: Not visible. Not visible Fluid in the cul-de-sac: None IMPRESSION: Eleven weeks 3 days live intrauterine gestation. Adequate progression compared to the prior study. Concordant findings (preliminary report) provided by [facility].
--- NOTE | 2018-10-29 12:08 | RAD ---
Date of service: 10/28/2018 PROCEDURE: Left Wrist Radiographs. HISTORY: fall, pain COMPARISON: None. FINDINGS: BONES: Normal. No fracture. JOINTS: Normal. No dislocation. SOFT TISSUES: Normal. OTHER FINDINGS: None. IMPRESSION: Normal left wrist radiographs.
--- NOTE | 2018-10-29 15:07 | RAD ---
PROCEDURE: Left Hand Radiographs. HISTORY: fall, pain COMPARISON: None. FINDINGS: BONES: Normal. No fracture. JOINTS: Normal. No osteoarthritic changes. SOFT TISSUES: Normal. OTHER FINDINGS: None. IMPRESSION: No acute findings related to/ accounting for the clinical presentation. Concordant findings (preliminary report) provided by [facility].
== END 2018-10-28 23:19 | disposition home or self-care (01) ==
LOC: H.ER 20:03
DX: M25.532 Pain in left wrist (principal); M79.642 Pain in left hand; R52 Pain, unspecified; W01.0XXA Fall on same level from slipping, tripping and stumbling without subsequent striking against object, initial encounter; Y92.89 Other specified places as the place of occurrence of the external cause; O26.891 Other specified pregnancy related conditions, first trimester; Z3A.10 10 weeks gestation of pregnancy

== ENCOUNTER 2019-01-15 21:45 | Emergency (ER) | payer SELFPAY ==
[2019-01-15 23:24] VITALS: BMI 37.9
[2019-01-15 23:43] LABS: SQUAMOUS EPITHIAL 1 /hpf (0-5); URINE BILIRUBIN NEGATIVE (NEGATIVE); URINE BLOOD NEGATIVE (NEGATIVE); URINE CLARITY SLIGHTY-CLOUDY (Clear); URINE COLOR YELLOW (YELLOW); URINE GLUCOSE (UA) NEG (NEGATIVE); URINE LEUKOCYTE ESTERASE NEG Leu/uL (Negative); URINE PROTEIN 30 mg/dL (NEGATIVE); URINE UROBILINOGEN 0.2-1.0 mg/dL (0.2-1.0)
--- NOTE | 2019-01-16 00:17 | OBHP ---
Datetime: 01/15/2019 23:20 IP Adm Impression: , intrauterine ; No Active Labor IP Chief Complaint Other: Pelvic pressure IP Adm Impression Other: Urinary Frequency with Pelvic Pressure IP Admit Plan: Observation/Evaluation Admit Comment, IP Provider: 43yo with intrauterine at 22w6d. She presents to the [facility] with urinary frequency and intermittent pelvic pain. She denies any vaginal bleeding or leakage of f luid. Patient has PNC at the [facility] and reports that has been uncomplicated. OBHX: , all NSVDs PMHx: Non contributory Social Hx: No toxic habits X3 S: afebrile Heart: RRR Chest: CTA B/l ABD: soft, BS- present, Mild tenderness in the suprapubic area with extension along the path of th e round ligaments SSE: No bleeding or abnormal discharge seen in vagina. Cx: 0/30/-3 Assessment: IUP at 22w6d Round Ligament pain Urinary Frequency Plan: UA with reflex to urine culture UA Result: Negative Plan: D/c Home Pain precautions reviewed with patient Follow up with the clinic Extremities - PN: Normal Abdomen - PN: Normal Back - PN: Normal Lungs - PN: Normal Neurologic - PN: Normal General - PN: Normal FHR - Baseline A Provider: 150s Membranes, Provider: Intact Gestation - Est Wks by US: 22.6 EGA AdmitDate IP: 23.0 Vital Signs Provider: Reviewed IP Chief Complaint: Signs/symptoms UTI; Other Dilatation, Provider: 0 Effacement, Provider: 30 Station, Provider: -3
[2019-01-16 10:34] VITALS: BP 120/55; PULSE 80; RESP 18; TEMP 98.3
== END 2019-01-16 00:30 | disposition home or self-care (01) ==
LOC: H.EROB2 21:45
DX: O23.42 Unspecified infection of urinary tract in pregnancy, second trimester (principal); Z3A.23 23 weeks gestation of pregnancy